=== PATIENT | male | born 1970 | race Caucasian/White ===

== ENCOUNTER → 2016-10-08 | Outpatient (CLI) | payer BC ==
--- NOTE | 2016-10-08 11:32 | US ---
EXAMINATION TYPE: US abdomen complete DATE OF EXAM: 10/08/2016 COMPARISON: NONE CLINICAL HISTORY: K82.9 DISEASE OF GALLBLADDER. mid abd and back pain, burning sensation after eating , rt shoulder pain EXAM MEASUREMENTS: Liver Length: 14.5 cm Gallbladder Wall: 0.2 cm CBD: 0.3 cm Spleen: 10.8 cm Right Kidney: 9.4 x 4.8 x 4.4 cm Left Kidney: 9.6 x 3.9 x 5.2 cm Bowel gas limits exam Pancreas: limited to no views due to bowel gas Liver: wnl Gallbladder: fundal fold seen, wnl Evidence for sonographic Bill's sign: no CBD: wnl Spleen: wnl Right Kidney: wnl Left Kidney: wnl Upper IVC: wnl Abd Aorta: unable to visualize due to extensive bowel gas The liver is homogenous. The intrahepatic portion of the IVC and proximal abdominal aorta are within normal limits. There is no evidence of cholelithiasis. Common bile duct is unremarkable. The visu alized portions of the pancreas are homogenous. The spleen is unremarkable. Kidneys are symmetric a nd free of hydronephrosis. No renal lesions are seen. IMPRESSION: 1. No sonographic evidence of acute cholecystitis. If there is clinical concern for biliary dyskinesi a or chronic cholecystitis HIDA scan with CCK could be performed. 2. Poor visualization of the abdominal aorta and pancreas due to overlying bowel gas.
== END ==
LOC: RADUSWWP 10:47
PROVIDERS: ATTEND Family Medicine
DX: K82.9 Disease of gallbladder, unspecified (principal)
CPT/HCPCS: 76700

== ENCOUNTER → 2016-10-21 | Outpatient (CLI) | payer BC ==
--- NOTE | 2016-10-21 15:15 | NM ---
EXAMINATION TYPE: NM hepatobiliary w EF DATE OF EXAM: 10/21/2016 COMPARISON: NONE HISTORY: Right upper quadrant pain. TECHNIQUE: After the intravenous administration of 5.38 mCi Tc 99m Mebrofenin hepatobiliary scintigra phy is performed. Immediate images post injection. FINDINGS: There is satisfactory initial accumulation of tracer by the liver. The gallbladder is visualized wit hin 10 minutes. The small bowel activity is noted within 42 minutes. At one hour 8 ounces of oral e nsure plus is given to mimic CCK and gallbladder ejection fraction is calculated at 48 %, below kiersten l. Therefore there is no scintigraphic evidence of cystic or common bile duct obstruction to suggest acute cholecystitis or gallbladder dyskinesia. IMPRESSION: BILIARY DYSKINESIA.
== END ==
LOC: RADNMMAIN 12:51
PROVIDERS: ATTEND Family Medicine
DX: K82.8 Other specified diseases of gallbladder (principal)
CPT/HCPCS: 78226; A9537

== ENCOUNTER 2018-05-07 16:25 | Emergency (ER) | payer BC ==
[2018-05-07] MEDS ORDERED: SODIUM CHLORIDE 0.9% 500 ML 500 ML IV STA (16:41)
[2018-05-07] MEDS ORDERED: SODIUM CHLORIDE 0.9% 1,000 ML IV STA (16:41)
[2018-05-07 16:49] VITALS: TEMP 97.7
--- NOTE | 2018-05-07 16:50 | ED ---
Syncope HPI - General Chief Complaint: Syncope Stated Complaint: Unresponsive Time Seen by Provider: 05/07/18 16:30 Source: patient, EMS, RN notes reviewed, old records reviewed Mode of arrival: EMS Limitations: no limitations - History of Present Illness Initial Comments: This is a 47-year-old male the ER for evaluation. Patient resents with a near syncopal like syncope-like reaction. With unresponsiveness. Patient has no significant medical history. He has had prior cardiac evaluation including stress test. Patient is had some right-sided chest pain on and off for quite some time when he woke from a nap with this pain earlier today. Patient also some slurred speech and weakness in his arms. Denies drug or alcohol abuse. Denies taking any medications. No prior history of such a significant event MD Complaint: felt faint, almost passed out -: minutes(s) Prodromal Symptoms: lightheaded, chest pain, palpitations, heart racing, diaphoresis -: minutes(s) Witnessed: yes - by bystander (Patient is was on the phone when he has slurred speech) Injuries Sustained Associated with Event: None Current Symptoms: back to baseline (Improving) History: previous syncopal episode Context: getting out of bed Treatments Prior to Arrival: none - Related Data Home Medications Medication Instructions Recorded Confirmed L.acidoph,Paracasei, B.lactis 1 cap PO DAILY 05/07/18 05/07/18 [Probiotic] Allergies Allergy/AdvReac Type Severity Reaction Status Date / Time No Known Allergies Allergy Verified 05/07/18 17:23 Review of Systems ROS Statement: Those systems with pertinent positive or pertinent negative responses have been documented in the HPI. ROS Other: All systems not noted in ROS Statement are negative. Past Medical History Past Medical History: No Reported History History of Any Multi-Drug Resistant Organisms: None Reported Additional Past Surgical History / Comment(s): urinary restriction repair Past Anesthesia/Blood Transfusion Reactions: No Reported Reaction Past Psychological History: No Psychological Hx Reported Smoking Status: Never smoker Past Alcohol Use History: Occasional Past Drug Use History: None Reported - Past Family History Father Family Medical History: No Reported History Mother Family Medical History: No Reported History General Exam - General Exam Comments Initial Comments: NIH is 0, no focal neurological deficit Limitations: no limitations General appearance: alert, in no apparent distress Head exam: Present: atraumatic, normocephalic, normal inspection Eye exam: Present: normal appearance, PERRL, EOMI. Absent: scleral icterus, conjunctival injection, periorbital swelling ENT exam: Present: normal exam, mucous membranes moist Neck exam: Present: normal inspection. Absent: tenderness, meningismus, lymphadenopathy Respiratory exam: Present: normal lung sounds bilaterally. Absent: respiratory distress, wheezes, rales, rhonchi, stridor Cardiovascular Exam: Present: regular rate, normal rhythm, normal heart sounds. Absent: systolic murmur, diastolic murmur, rubs, gallop, clicks GI/Abdominal exam: Present: soft, normal bowel sounds. Absent: distended, tenderness, guarding, rebound, rigid Extremities exam: Present: normal inspection, full ROM, normal capillary refill. Absent: tenderness, pedal edema, joint swelling, calf tenderness Back exam: Present: normal inspection Neurological exam: Present: alert, oriented X3, CN II-XII intact Psychiatric exam: Present: normal affect, normal mood Skin exam: Present: warm, dry, intact, normal color. Absent: rash Course Vital Signs 05/07/18 05/07/18 05/07/18 16:35 17:00 17:30 Temperature 97.7 F Pulse Rate 84 78 75 Respiratory 26 H 16 18 Rate Blood Pressure 146/90 146/90 119/81 O2 Sat by Pulse 100 88 L 91 L Oximetry 05/07/18 05/07/18 18:00 19:25 Temperature Pulse Rate 76 77 Respiratory 18 18 Rate Blood Pressure 132/89 123/84 O2 Sat by Pulse 100 98 Oximetry - Reevaluation(s) Reevaluation #1: 05/07/18 18:03 Medical record is reviewed Patient at length regarding findings, he does feel comfortable by findings. Patient would not stay in the hospital for further evaluation at this time. Questions answered EKG Findings - EKG Comments: EKG Findings:: EKG shows sinus rhythm rate of 70, [place] 140, QRS 90, QTc 424 Medical Decision Making - Medical Decision Making 47 male the ER for evaluation. Patient resents today for evaluation regards to near syncopal event after having some chest pain. Patient hasn't CT of the chest is negative for acute disease a CT of his brain which is normal and normal electrolytes and lab values. Patient himself is back to baseline with normal vital signs. Pulse of and stable throughout ER stay. Patient can be discharged home - Lab Data Result diagrams: 05/07/18 17:00 05/07/18 17:00 Lab Results 05/07/18 05/07/18 05/07/18 Range/Units 17:00 17:00 17:00 WBC (3.8-10.6) k/uL RBC (4.30-5.90) m/uL Hgb (13.0-17.5) gm/dL Hct (39.0-53.0) % MCV (80.0-100.0) fL MCH (25.0-35.0) pg MCHC (31.0-37.0) g/dL RDW (11.5-15.5) % Plt Count (150-450) k/uL Neutrophils % % Lymphocytes % % Monocytes % % Eosinophils % % Basophils % % Neutrophils # (1.3-7.7) k/uL Lymphocytes # (1.0-4.8) k/uL Monocytes # (0-1.0) k/uL Eosinophils # (0-0.7) k/uL Basophils # (0-0.2) k/uL PT (9.0-12.0) sec INR (<1.2) D-Dimer (<0.60) mg/L FEU VBG pH 7.54 H (7.31-7.41) VBG pCO2 27 L (37-51) mmHg VBG HCO3 23 L (24-28) mmol/L Sodium 139 (137-145) mmol/L Potassium 3.8 (3.5-5.1) mmol/L Chloride 105 (98-107) mmol/L Carbon Dioxide 22 (22-30) mmol/L Anion Gap 12 mmol/L BUN 18 (9-20) mg/dL Creatinine 1.00 (0.66-1.25) mg/dL Est GFR (CKD-EPI)AfAm >90 (>60 ml/min/1.73 sqM) Est GFR (CKD-EPI)NonAf 90 (>60 ml/min/1.73 sqM) Glucose 129 H (74-99) mg/dL POC Glucose (mg/dL) (75-99) mg/dL POC Glu Machine Filler Shredder ID Plasma Lactic Acid Jaime 3.2 H* (0.7-2.0) mmol/L Calcium 9.9 (8.4-10.2) mg/dL Total Bilirubin 0.7 (0.2-1.3) mg/dL AST 22 (17-59) U/L ALT 30 (21-72) U/L Alkaline Phosphatase 69 (38-126) U/L Ammonia <9 (<30) umol/L Troponin I (0.000-0.034) ng/mL Total Protein 7.2 (6.3-8.2) g/dL Albumin 4.4 (3.5-5.0) g/dL Lipase 95 (23-300) U/L Urine Color Urine Appearance (Clear) Urine pH (5.0-8.0) Ur Specific [place] (1.001-1.035) Urine Protein (Negative) Urine Glucose (UA) (Negative) Urine Ketones (Negative) Urine Blood (Negative) Urine Nitrite (Negative) Urine Bilirubin (Negative) Urine Urobilinogen (<2.0) mg/dL Ur Leukocyte Esterase (Negative) Salicylates <1.0 mg/dL Urine Opiates Screen (NotDetected) Ur Oxycodone Screen (NotDetected) Urine Methadone Screen (NotDetected) Ur Propoxyphene Screen (NotDetected) Acetaminophen <10.0 ug/mL Ur Barbiturates Screen (NotDetected) U Tricyclic Antidepress (NotDetected) Ur Phencyclidine Scrn (NotDetected) Ur Amphetamines Screen (NotDetected) U Methamphetamines Scrn (NotDetected) U Benzodiazepines Scrn (NotDetected) Urine Cocaine Screen (NotDetected) U Marijuana (THC) Screen (NotDetected) Serum Alcohol <10 mg/dL 05/07/18 05/07/18 05/07/18 Range/Units 17:00 17:00 17:00 WBC 4.3 (3.8-10.6) k/uL RBC 4.84 (4.30-5.90) m/uL Hgb 14.3 (13.0-17.5) gm/dL Hct 41.8 (39.0-53.0) % MCV 86.3 (80.0-100.0) fL MCH 29.5 (25.0-35.0) pg MCHC 34.2 (31.0-37.0) g/dL RDW 12.9 (11.5-15.5) % Plt Count 196 (150-450) k/uL Neutrophils % 53 % Lymphocytes % 27 % Monocytes % 11 % Eosinophils % 5 % Basophils % 1 % Neutrophils # 2.3 (1.3-7.7) k/uL Lymphocytes # 1.2 (1.0-4.8) k/uL Monocytes # 0.5 (0-1.0) k/uL Eosinophils # 0.2 (0-0.7) k/uL Basophils # 0.0 (0-0.2) k/uL PT 10.2 (9.0-12.0) sec INR 0.9 (<1.2) D-Dimer (<0.60) mg/L FEU VBG pH (7.31-7.41) VBG pCO2 (37-51) mmHg VBG HCO3 (24-28) mmol/L Sodium (137-145) mmol/L Potassium (3.5-5.1) mmol/L Chloride (98-107) mmol/L Carbon Dioxide (22-30) mmol/L Anion Gap mmol/L BUN (9-20) mg/dL Creatinine (0.66-1.25) mg/dL Est GFR (CKD-EPI)AfAm (>60 ml/min/1.73 sqM) Est GFR (CKD-EPI)NonAf (>60 ml/min/1.73 sqM) Glucose (74-99) mg/dL POC Glucose (mg/dL) (75-99) mg/dL POC Glu Machine Filler Shredder ID Plasma Lactic Acid Jaime (0.7-2.0) mmol/L Calcium (8.4-10.2) mg/dL Total Bilirubin (0.2-1.3) mg/dL AST (17-59) U/L ALT (21-72) U/L Alkaline Phosphatase (38-126) U/L Ammonia (<30) umol/L Troponin I <0.012 (0.000-0.034) ng/mL Total Protein (6.3-8.2) g/dL Albumin (3.5-5.0) g/dL Lipase (23-300) U/L Urine Color Urine Appearance (Clear) Urine pH (5.0-8.0) Ur Specific [place] (1.001-1.035) Urine Protein (Negative) Urine Glucose (UA) (Negative) Urine Ketones (Negative) Urine Blood (Negative) Urine Nitrite (Negative) Urine Bilirubin (Negative) Urine Urobilinogen (<2.0) mg/dL Ur Leukocyte Esterase (Negative) Salicylates mg/dL Urine Opiates Screen (NotDetected) Ur Oxycodone Screen (NotDetected) Urine Methadone Screen (NotDetected) Ur Propoxyphene Screen (NotDetected) Acetaminophen ug/mL Ur Barbiturates Screen (NotDetected) U Tricyclic Antidepress (NotDetected) Ur Phencyclidine Scrn (NotDetected) Ur Amphetamines Screen (NotDetected) U Methamphetamines Scrn (NotDetected) U Benzodiazepines Scrn (NotDetected) Urine Cocaine Screen (NotDetected) U Marijuana (THC) Screen (NotDetected) Serum Alcohol mg/dL 05/07/18 05/07/18 05/07/18 Range/Units 17:00 17:00 17:06 WBC (3.8-10.6) k/uL RBC (4.30-5.90) m/uL Hgb (13.0-17.5) gm/dL Hct (39.0-53.0) % MCV (80.0-100.0) fL MCH (25.0-35.0) pg MCHC (31.0-37.0) g/dL RDW (11.5-15.5) % Plt Count (150-450) k/uL Neutrophils % % Lymphocytes % % Monocytes % % Eosinophils % % Basophils % % Neutrophils # (1.3-7.7) k/uL Lymphocytes # (1.0-4.8) k/uL Monocytes # (0-1.0) k/uL Eosinophils # (0-0.7) k/uL Basophils # (0-0.2) k/uL PT (9.0-12.0) sec INR (<1.2) D-Dimer 0.22 (<0.60) mg/L FEU VBG pH (7.31-7.41) VBG pCO2 (37-51) mmHg VBG HCO3 (24-28) mmol/L Sodium (137-145) mmol/L Potassium (3.5-5.1) mmol/L Chloride (98-107) mmol/L Carbon Dioxide (22-30) mmol/L Anion Gap mmol/L BUN (9-20) mg/dL Creatinine (0.66-1.25) mg/dL Est GFR (CKD-EPI)AfAm (>60 ml/min/1.73 sqM) Est GFR (CKD-EPI)NonAf (>60 ml/min/1.73 sqM) Glucose (74-99) mg/dL POC Glucose (mg/dL) 95 (75-99) mg/dL POC Glu Machine Filler Shredder ID May Plasma Lactic Acid Jaime (0.7-2.0) mmol/L Calcium (8.4-10.2) mg/dL Total Bilirubin (0.2-1.3) mg/dL AST (17-59) U/L ALT (21-72) U/L Alkaline Phosphatase (38-126) U/L Ammonia (<30) umol/L Troponin I (0.000-0.034) ng/mL Total Protein (6.3-8.2) g/dL Albumin (3.5-5.0) g/dL Lipase (23-300) U/L Urine Color Light Yellow Urine Appearance Clear (Clear) Urine pH 8.5 H (5.0-8.0) Ur Specific [place] 1.006 (1.001-1.035) Urine Protein Negative (Negative) Urine Glucose (UA) Negative (Negative) Urine Ketones Negative (Negative) Urine Blood Negative (Negative) Urine Nitrite Negative (Negative) Urine Bilirubin Negative (Negative) Urine Urobilinogen <2.0 (<2.0) mg/dL Ur Leukocyte Esterase Negative (Negative) Salicylates mg/dL Urine Opiates Screen Not Detected (NotDetected) Ur Oxycodone Screen Not Detected (NotDetected) Urine Methadone Screen Not Detected (NotDetected) Ur Propoxyphene Screen Not Detected (NotDetected) Acetaminophen ug/mL Ur Barbiturates Screen Not Detected (NotDetected) U Tricyclic Antidepress Not Detected (NotDetected) Ur Phencyclidine Scrn Not Detected (NotDetected) Ur Amphetamines Screen Not Detected (NotDetected) U Methamphetamines Scrn Not Detected (NotDetected) U Benzodiazepines Scrn Not Detected (NotDetected) Urine Cocaine Screen Not Detected (NotDetected) U Marijuana (THC) Screen Not Detected (NotDetected) Serum Alcohol mg/dL - Radiology Data Radiology results: report reviewed (CT brain CTA chest negative for acute disease), image reviewed Disposition Clinical Impression: Near syncope, Chest pain Disposition: HOME SELF-CARE Condition: Good Instructions (If sedation given, give patient instructions): Chest Pain (ED), Near Syncope (ED) Is patient prescribed a controlled substance at d/c from ED?: No Referrals: Rupinder Valverde III, MD [Primary Care Provider] - 1-2 days
[2018-05-07 17:09] LABS: Glucose,Whole Blood 95 mg/dL (75-99)
[2018-05-07 17:37] LABS: Basophils % (A) 1 %; Eosinophils # (A) 0.2 k/uL (0-0.7); Eosinophils % (A) 5 %; HCT 41.8 % (39.0-53.0); HGB 14.3 gm/dL (13.0-17.5); Lymphocytes # (A) 1.2 k/uL (1.0-4.8); Lymphocytes % (A) 27 %; MCH 29.5 pg (25.0-35.0); MCHC 34.2 g/dL (31.0-37.0); MCV 86.3 fL (80.0-100.0); Mean Platelet Volume 7.6; Monocytes # (A) 0.5 k/uL (0-1.0); Monocytes % (A) 11 %; Neutrophils # (A) 2.3 k/uL (1.3-7.7); Neutrophils % (A) 53 %; Platelet Count 196 k/uL (150-450); RBC 4.84 m/uL (4.30-5.90); RDW 12.9 % (11.5-15.5); WBC 4.3 k/uL (3.8-10.6)
[2018-05-07 17:38] LABS: VBG PH 7.54 (7.31-7.41)
--- NOTE | 2018-05-07 17:39 | CT ---
EXAMINATION TYPE: CT brain wo con DATE OF EXAM: 05/07/2018 COMPARISON: None HISTORY: dizziness, syncopal episode CT DLP: 1188.4 mGycm. Automated Exposure Control for Dose Reduction was Utilized. TECHNIQUE: CT scan of the head is performed without contrast. FINDINGS: Ventricles of normal size. There is no mass effect nor midline shift. There is no sign of i ntracranial hemorrhage. The calvarium is intact. IMPRESSION: Negative CT scan of the brain.
[2018-05-07 17:41] LABS: Appearance,Urine Clear (Clear); Bilirubin,Urine Negative (Negative); Blood,Urine Negative (Negative); Color,Urine Light Yellow; Glucose,Urine (UA) Negative (Negative); Ketones,Urine Negative (Negative); Leukocyte Esterase,Urine Negative (Negative); Nitrite,Urine Negative (Negative); PH, Urine 8.5 (5.0-8.0); Protein,Urine Negative (Negative); Specific Gravity,Urine 1.006 (1.001-1.035); Urobilinogen,Urine <2.0 mg/dL (<2.0)
[2018-05-07 17:46] LABS: INR 0.9 (<1.2); Prothrombin Time 10.2 sec (9.0-12.0)
[2018-05-07 17:51] LABS: ALT 30 U/L (21-72); AST 22 U/L (17-59); Acetaminophen <10.0 ug/mL; Albumin 4.4 g/dL (3.5-5.0); Alcohol <10 mg/dL; Alkaline Phosphatase 69 U/L (38-126); Anion Gap 12 mmol/L; Blood Urea Nitrogen 18 mg/dL (9-20); Calcium 9.9 mg/dL (8.4-10.2); Carbon Dioxide 22 mmol/L (22-30); Chloride 105 mmol/L (98-107); Glucose 129 mg/dL (74-99); Lipase 95 U/L (23-300); Potassium 3.8 mmol/L (3.5-5.1); Salicylate <1.0 mg/dL; Sodium 139 mmol/L (137-145); Total Bilirubin 0.7 mg/dL (0.2-1.3); Total Protein 7.2 g/dL (6.3-8.2)
[2018-05-07 17:55] LABS: Ammonia <9 umol/L (<30)
[2018-05-07 17:57] LABS: Lactic Acid, Venous 3.2 mmol/L (0.7-2.0)
[2018-05-07 18:07] LABS: Amphetamine Screen,Urine Not Detected (NotDetected); Barbiturate Screen,Urine Not Detected (NotDetected); Benzodiazepines Screen,Urine Not Detected (NotDetected); Cocaine Screen,Urine Not Detected (NotDetected); Methadone Screen, Urine Not Detected (NotDetected); Opiate Screen,Urine Not Detected (NotDetected); Oxycodone Screen, Urine Not Detected (NotDetected); Phencyclidine Screen,Urine Not Detected (NotDetected); Tricyclic Antidepressant,Urine Not Detected (NotDetected); Urn Cannabinoid Scrn Not Detected (NotDetected)
[2018-05-07 18:24] VITALS: RESP 18
--- NOTE | 2018-05-07 18:31 | CT ---
EXAMINATION TYPE: CT angio chest DATE OF EXAM: 05/07/2018 6:09 PM COMPARISON: None HISTORY: chest pain CT DLP: 347.1 mGycm Automated exposure control for dose reduction was used. CONTRAST: CTA scan of the thorax is performed with IV Contrast, patient injected with 94cc mL of Isovue 370, pu lmonary embolism protocol. . FINDINGS: There are 3-D post processed images. The lungs are clear of consolidation. There is no evidence of a pulmonary mass. There is no pleural e ffusion. There is 5 mm area of minimal pleural thickening at the medial right lung apex. There is no mediastinal adenopathy. Thoracic aorta is intact without evidence of aneurysm or dissecti on. There are no hilar masses. Heart size is normal. There is no pericardial effusion. There is normal contrast opacification of the pulmonary arteries. The bony thorax appears intact. There is some spurring in the thoracic spine. IMPRESSION: NO EVIDENCE OF PULMONARY EMBOLISM. NEGATIVE EXAM.
[2018-05-07 19:26] VITALS: BP 123/84; PULSE 77
== END 2018-05-07 19:34 | disposition home or self-care (01) ==
LOC: EC 16:25
DX: R55 Syncope and collapse (principal); R07.9 Chest pain, unspecified; R47.81 Slurred speech; R53.1 Weakness
CPT/HCPCS: 36415; 93005; 85379; 80053; 82140; 82803; 83605; 83690; 84484; 85025; 85610; 81003; 80306; 83520 ×2; 80320; 70450; 71275; 99285; 96360; Q9967

== ENCOUNTER 2018-06-12 09:51 | Day surgery (SDC) | payer BC ==
[2018-06-08 09:34] VITALS: BMI 24.3
[~2018-06-12 09:51] MED LIST: LACTATED RINGERS 1,000 ML IV SCH; LIDOCAINE 1% 20 ML VIAL (10MG/ML) FOR IV START INTRADERMA PRN
[2018-06-12 10:17] VITALS: RESP 16; TEMP 97.9
[2018-06-12] MEDS ORDERED: PROPOFOL 10 MG/ML 20 ML VIAL IV ONE (11:46)
[2018-06-12] MEDS ORDERED: LIDOCAINE 1% INJ 10MG/ML (20 ML MDV) ONE (11:46)
--- NOTE | 2018-06-12 12:13 | P.PCN ---
Date of Procedure: 06/12/18 Procedure(s) Performed: Procedure: Esophagogastroduodenoscopy and biopsy. Preoperative diagnosis: Epigastric pain of around 8 weeks duration. Postoperative diagnosis: 1. Small sliding hiatal hernia with no definite esophagitis or complicated reflux disease. 2. Mild antral gastritis and minimal duodenitis. 3. Multiple biopsies obtained from the duodenum, antrum and esophagus. Preparation and sedation: Was provided by anesthesia. Brief clinical history: The patient is a 47-year-old male who is scheduled for this evolution because of epigastric and hypogastric pains with radiation to the back of around 8-week duration. He is not having any reflux symptoms as such. Initially, at the beginning of this illness, he was having some nocturnal regurgitation and this as promptly improved once he was his diet and stopped eating for 2-3 hours before bedtime. No alarm symptoms. This evaluation is requested to assess for esophagitis, rule out complicated reflux disease or other pathology. Procedure: With the patient on his left lateral decubitus position and after informed consent and adequate sedation, I passed the Olympus-GIF H 190 video upper endoscope through the cricopharyngeus down the esophagus. GE junction was around 38 cm from the incisors and there was a small sliding hiatal hernia but no obvious esophagitis or complicated reflux disease. The endoscope was then passed into the stomach which was insufflated with air and inspected in detail including the retroflex view in the cardia. There was some mottling and erythema in the antrum but no ulcers or erosions. Pyloric channel did not show any ulcers. Duodenal bulb showed minimal erythema with no ulcers or erosions. Post bulbar area and descending duodenum appeared essentially within normal limits. I obtained biopsies from the duodenum, antrum and esophagus then the endoscope was withdrawn. The patient tolerated the procedure well. Plan: The patient was reassured. Will await biopsy results. He will follow up with you as planned and I will be happy to see in the office if his symptoms persist.
[2018-06-12 12:36] VITALS: BP 135/76; PULSE 66
== END 2018-06-12 13:02 | disposition home or self-care (01) ==
LOC: ORWHC2ENDO 09:51
DX: K29.50 Unspecified chronic gastritis without bleeding (principal); K29.80 Duodenitis without bleeding; K20.9 Esophagitis, unspecified; K44.9 Diaphragmatic hernia without obstruction or gangrene; Z88.5 Allergy status to narcotic agent
CPT/HCPCS: 88305; 43239; J2001; J2704

== ENCOUNTER 2020-06-23 19:39 | Emergency (ER) | payer BC ==
[2020-06-23 19:49] VITALS: RESP 18
--- NOTE | 2020-06-23 20:08 | ED ---
Dizziness HPI - General Chief Complaint: Syncope Stated Complaint: Syncope,Covid+ Time Seen by Provider: 06/23/20 19:45 Source: patient, EMS Mode of arrival: EMS Limitations: no limitations - History of Present Illness Initial Comments: Patient is a 49-year-old male who presents emergency department after he had a syncopal episode. It is reported by EMS that the patient was at home with his when he passed out. Patient was sitting down watching TV when his eyes rolled back in his head. states that he was unresponsive for approximate 5 minutes. There is no seizure-like activity. No bowel or bladder incontinence. Patient did not bite his tongue. EMS was called to the house where the patient was found to be pale and diaphoretic. Patient was found to be Covid-positive on the . He did get diagnosed at [facility]. Patient has not been taking any new medications for the covid diagnosis. He admits to nausea with decreased ora l intake. No vomiting. Denies any chest pain or shortness of breath. No abdominal pain. Does admit to diarrhea. Does admit to dark stools. No other alleviating, precipitating or modifying factors - Related Data Home Medications Medication Instructions Recorded Confirmed Cholecalciferol [Vitamin D3 (25 50 mcg PO DAILY 06/23/20 06/23/20 Mcg = 1000 Iu)] Famotidine [Pepcid AC] 20 mg PO DAILY PRN 06/23/20 06/23/20 Previous Rx's Medication Instructions Recorded Ondansetron Odt [Zofran Odt] 4 mg PO Q8HR PRN #15 tab 06/23/20 Allergies Allergy/AdvReac Type Severity Reaction Status Date / Time meperidine [From Demerol] Allergy Nausea Verified 06/23/20 20:59 mold,cat dander Allergy Unknown Uncoded 06/12/18 10:11 Review of Systems ROS Statement: Those systems with pertinent positive or pertinent negative responses have been documented in the HPI. ROS Other: All systems not noted in ROS Statement are negative. Past Medical History Past Medical History: Skin Disorder Additional Past Medical History / Comment(s): stomach burning feeling and d iscomfort, hx eczema, History of Any Multi-Drug Resistant Organisms: None Reported Additional Past Surgical History / Comment(s): urinary restriction repair/removal of scar tissue Past Anesthesia/Blood Transfusion Reactions: Motion Sickness, Postoperative Nausea & Vomiting (PONV) Past Psychological History: No Psychological Hx Reported Smoking Status: Never smoker Past Alcohol Use History: Occasional Past Drug Use History: None Reported - Past Family History Father Family Medical History: No Reported History Mother Family Medical History: No Reported History General Exam Limitations: no limitations General appearance: alert, in no apparent distress Head exam: Present: atraumatic, normocephalic, normal inspection Eye exam: Present: normal appearance, PERRL, EOMI. Absent: scleral icterus, conjunctival injection, periorbital swelling ENT exam: Present: normal exam, mucous membranes moist Neck exam: Present: normal inspection. Absent: tenderness, meningismus, l ymphadenopathy Respiratory exam: Present: normal lung sounds bilaterally. Absent: respiratory distress, wheezes, rales, rhonchi, stridor Cardiovascular Exam: Present: regular rate, normal rhythm, normal heart sounds. Absent: systolic murmur, diastolic murmur, rubs, gallop, clicks GI/Abdominal exam: Present: soft, normal bowel sounds. Absent: distended, tenderness, guarding, rebound, rigid Extremities exam: Present: normal inspection, full ROM, normal capillary refill. Absent: tenderness, pedal edema, joint swelling, calf tenderness Back exam: Present: normal inspection Neurological exam: Present: alert, oriented X3, CN II-XII intact Psychiatric exam: Present: normal affect, normal mood Skin exam: Present: warm, intact, normal color, diaphoretic. Absent: rash Course Vital Signs 06/23/20 06/23/20 19:42 22:32 Temperature 98.0 F 98.7 F Pulse Rate 64 82 Respiratory 18 18 Rate Blood Pressure 131/82 127/78 O2 Sat by Pulse 96 98 Oximetry EKG Findings - EKG Comments: EKG Findings:: EKG demonstrates normal sinus rhythm with a ventricular rate of 81. DE interval 142. QRS 76. QTC 457. No acute ST segment elevations or depressions Medical Decision Making - Medical Decision Making Upon arrival patient is placed in room 11. Thorough history and physical exam is performed. IV is established. Patient was given a liter bolus of normal saline informal grams of Zofran. Laboratory studies are conducted and reviewed. Slight elevation the patient's AST and ALT. He does provide a stool sample which is negative for blood. Chest x-ray is performed which demonstrates no acute process. Results are discussed with the patient. Did offer hospital admission however the issue reports that he wants to go home at this time. Patient does have improved coloration to his skin. Patient is given strict return parameters. Instructed to increase hydration. He will be given a Zofran starter pack and additional prescription called in to pharmacy. If the patient has any new or worsening symptoms he should return to the emergency department. Patient agreed to this and the patient was discharged home in stable condition - Lab Data Result diagrams: 06/23/20 20:27 06/23/20 20:27 Lab Results 06/23/20 06/23/20 06/23/20 Range/Units 20:27 20:27 20:27 WBC 3.7 L (3.8-10.6) k/uL RBC 4.54 (4.30-5.90) m/uL Hgb 13.9 (13.0-17.5) gm/dL Hct 38.7 L (39.0-53.0) % MCV 85.1 (80.0-100.0) fL MCH 30.6 (25.0-35.0) pg MCHC 35.9 (31.0-37.0) g/dL RDW 12.6 (11.5-15.5) % Plt Count 141 L (150-450) k/uL MPV 7.7 Neutrophils % 36 % Lymphocytes % 51 % Monocytes % 7 % Eosinophils % 3 % Basophils % 1 % Neutrophils # 1.4 (1.3-7.7) k/uL Lymphocytes # 1.9 (1.0-4.8) k/uL Monocytes # 0.3 (0-1.0) k/uL Eosinophils # 0.1 (0-0.7) k/uL Basophils # 0.0 (0-0.2) k/uL PT 9.8 (9.0-12.0) sec INR 0.9 (<1.2) APTT 21.4 L (22.0-30.0) sec D-Dimer 0.32 (<0.60) mg/L FEU Sodium 139 (137-145) mmol/L Potassium 3.7 (3.5-5.1) mmol/L Chloride 103 (98-107) mmol/L Carbon Dioxide 24 (22-30) mmol/L Anion Gap 12 mmol/L BUN 22 H (9-20) mg/dL Creatinine 1.06 (0.66-1.25) mg/dL Est GFR (CKD-EPI)AfAm >90 (>60 ml/min/1.73 sqM) Est GFR (CKD-EPI)NonAf 83 (>60 ml/min/1.73 sqM) Glucose 112 H (74-99) mg/dL Plasma Lactic Acid Jaime (0.7-2.0) mmol/L Calcium 9.1 (8.4-10.2) mg/dL Magnesium 2.2 (1.6-2.3) mg/dL Total Bilirubin 0.6 (0.2-1.3) mg/dL AST 62 H (17-59) U/L ALT 63 H (4-49) U/L Alkaline Phosphatase 57 (38-126) U/L Lactate Dehydrogenase 557 (313-618) U/L Troponin I (0.000-0.034) ng/mL C-Reactive Protein 0.9 (<1.0) mg/dL Total Protein 6.9 (6.3-8.2) g/dL Albumin 4.4 (3.5-5.0) g/dL Stool Occult Blood (Negative) 06/23/20 06/23/20 06/23/20 Range/Units 20:27 20:27 22:06 WBC (3.8-10.6) k/uL RBC (4.30-5.90) m/uL Hgb (13.0-17.5) gm/dL Hct (39.0-53.0) % MCV (80.0-100.0) fL MCH (25.0-35.0) pg MCHC (31.0-37.0) g/dL RDW (11.5-15.5) % Plt Count (150-450) k/uL MPV Neutrophils % % Lymphocytes % % Monocytes % % Eosinophils % % Basophils % % Neutrophils # (1.3-7.7) k/uL Lymphocytes # (1.0-4.8) k/uL Monocytes # (0-1.0) k/uL Eosinophils # (0-0.7) k/uL Basophils # (0-0.2) k/uL PT (9.0-12.0) sec INR (<1.2) APTT (22.0-30.0) sec D-Dimer (<0.60) mg/L FEU Sodium (137-145) mmol/L Potassium (3.5-5.1) mmol/L Chloride (98-107) mmol/L Carbon Dioxide (22-30) mmol/L Anion Gap mmol/L BUN (9-20) mg/dL Creatinine (0.66-1.25) mg/dL Est GFR (CKD-EPI)AfAm (>60 ml/min/1.73 sqM) Est GFR (CKD-EPI)NonAf (>60 ml/min/1.73 sqM) Glucose (74-99) mg/dL Plasma Lactic Acid Jaime 1.5 (0.7-2.0) mmol/L Calcium (8.4-10.2) mg/dL Magnesium (1.6-2.3) mg/dL Total Bilirubin (0.2-1.3) mg/dL AST (17-59) U/L ALT (4-49) U/L Alkaline Phosphatase (38-126) U/L Lactate Dehydrogenase (313-618) U/L Troponin I <0.012 (0.000-0.034) ng/mL C-Reactive Protein (<1.0) mg/dL Total Protein (6.3-8.2) g/dL Albumin (3.5-5.0) g/dL Stool Occult Blood Negative (Negative) Disposition Clinical Impression: COVID-19, Syncope Disposition: HOME SELF-CARE Condition: Stable Instructions (If sedation given, give patient instructions): Coronavirus Disea se 2019 (COVID-19), Syncope (ED) Additional Instructions: Please stay hydrated. Use the zofran as needed for nausea. Return to the ED for any new or worsening symptoms. Prescriptions: Ondansetron Odt [Zofran Odt] 4 mg PO Q8HR PRN #15 tab PRN Reason: Nausea Is patient prescribed a controlled substance at d/c from ED?: No Referrals: Rupinder Valverde III, MD [Primary Care Provider] - 1-2 days Time of Disposition: 22:27
[2020-06-23] MEDS ORDERED: SODIUM CHLORIDE 0.9% 1,000 ML IV ONE (20:12)
[2020-06-23] MEDS ORDERED: ONDANSETRON 4 MG/2 ML VIAL IVP STA (20:12)
[2020-06-23 20:37] LABS: Basophils % (A) 1 %; Eosinophils # (A) 0.1 k/uL (0-0.7); Eosinophils % (A) 3 %; HCT 38.7 % (39.0-53.0); HGB 13.9 gm/dL (13.0-17.5); Lymphocytes # (A) 1.9 k/uL (1.0-4.8); Lymphocytes % (A) 51 %; MCH 30.6 pg (25.0-35.0); MCHC 35.9 g/dL (31.0-37.0); MCV 85.1 fL (80.0-100.0); Mean Platelet Volume 7.7; Monocytes # (A) 0.3 k/uL (0-1.0); Monocytes % (A) 7 %; Neutrophils # (A) 1.4 k/uL (1.3-7.7); Neutrophils % (A) 36 %; Platelet Count 141 k/uL (150-450); RBC 4.54 m/uL (4.30-5.90); RDW 12.6 % (11.5-15.5); WBC 3.7 k/uL (3.8-10.6)
[2020-06-23 20:59] LABS: ALT 63 U/L (4-49); AST 62 U/L (17-59); African American GFR (CKD) >90 (>60 ml/min/1.73 sqM); Albumin 4.4 g/dL (3.5-5.0); Alkaline Phosphatase 57 U/L (38-126); Anion Gap 12 mmol/L; Blood Urea Nitrogen 22 mg/dL (9-20); C Reactive Protein 0.9 mg/dL (<1.0); Calcium 9.1 mg/dL (8.4-10.2); Carbon Dioxide 24 mmol/L (22-30); Chloride 103 mmol/L (98-107); Glucose 112 mg/dL (74-99); LDH 557 U/L (313-618); Magnesium 2.2 mg/dL (1.6-2.3); Non-African American GFR(CKD) 83 (>60 ml/min/1.73 sqM); Potassium 3.7 mmol/L (3.5-5.1); Sodium 139 mmol/L (137-145); Total Bilirubin 0.6 mg/dL (0.2-1.3); Total Protein 6.9 g/dL (6.3-8.2)
[2020-06-23 21:03] LABS: D-Dimer 0.32 mg/L FEU (<0.60); INR 0.9 (<1.2); Prothrombin Time 9.8 sec (9.0-12.0)
--- NOTE | 2020-06-23 21:11 | XR ---
EXAMINATION TYPE: XR chest 1V portable DATE OF EXAM: 06/23/2020 COMPARISON: 10/09/2015 HISTORY: Chest pain TECHNIQUE: Single frontal view of the chest is obtained. FINDINGS: There is no focal air space opacity, pleural effusion, or pneumothorax seen. The cardiac silhouette size is within normal limits. The osseous structures are intact. IMPRESSION: 1. No acute process.
[2020-06-23 21:34] LABS: Partial Thromboplastin Time 21.4 sec (22.0-30.0)
[2020-06-23] MEDS ORDERED: ONDANSETRON 4 MG ODT STARTER PACK 2 TAB BTL PO STA (22:25)
[2020-06-23 22:33] VITALS: BP 127/78; PULSE 82; TEMP 98.7
== END 2020-06-23 22:53 | disposition home or self-care (01) ==
LOC: EC 19:39
DX: R55 Syncope and collapse (principal); U07.1 COVID-19
CPT/HCPCS: 36415; 93005; 85379; 80053; 83605; 83615; 83735; 84484; 85025; 85610; 85730; 86140; 82272; 84145; 71045; 99284; 96374; 96361; J2405; S0119

== ENCOUNTER 2020-07-22 07:14 | Observation (INO) | payer BC ==
--- NOTE | 2020-07-22 07:46 | ED ---
Chest Pain HPI - General Chief Complaint: Chest Pain Stated Complaint: Racing heart, lightheadedness Time Seen by Provider: 07/22/20 07:16 Source: patient, family, RN/MD, RN notes reviewed Mode of arrival: wheelchair Limitations: no limitations - History of Present Illness Initial Comments: This is a 49-year-old male with a sensory benign history who had been diagnosed with COVID-19 on June 17 of this year who recently has had problems with waking up at night with palpitations and chest pain. He does have chronic cough and fatigue syndrome and shortness of breath since a [place] he's had 2 negative x- rays recently. He does state he's been having chills sweats but no fever he said pain and radiates down his right arm and his left arm and different times. He states it seems to get worse when he is supine and better when he sits up when these events occur. He was sent in by his doctor for evaluation. Currently he is pain-free he denies any calf pain he's a nonsmoker there is a family history of heart disease at an early age in the 40s of both grandparents he states they were both heavy smokers. His own father has no history at this time of cardiac events. No other complaints or modifying factors at this time MD Complaint: chest pain, other - Related Data Home Medications Medication Instructions Recorded Confirmed No Known Home Medications 07/22/20 07/22/20 Allergies Allergy/AdvReac Type Severity Reaction Status Date / Time meperidine [From Demerol] AdvReac Nausea Verified 07/22/20 08:25 mold,cat dander AdvReac Unknown Uncoded 07/22/20 08:25 Review of Systems ROS Statement: Those systems with pertinent positive or pertinent negative responses have been documented in the HPI. ROS Other: All systems not noted in ROS Statement are negative. EKG Findings - EKG Results: EKG: interpreted by [facility]LA[facility] [place], sinus rhythm, normal axis, normal QRS, normal ST/T, no acute changes (EKG shows normal sinus rhythm of 70. Interval 146 QRS 76 daily since QTC 374/[address]-T wave changes this is compared with an EKG dated 06/23/20 showing similar configuration.) Past Medical History Past Medical History: Skin Disorder Additional Past Medical History / Comment(s): stomach burning feeling and discomfort, hx eczema, History of Any Multi-Drug Resistant Organisms: None Reported Additional Past Surgical History / Comment(s): urinary restriction repair/removal of scar tissue Past Anesthesia/Blood Transfusion Reactions: Motion Sickness, Postoperative Nausea & Vomiting (PONV) Past Psychological History: No Psychological Hx Reported Smoking Status: Never smoker Past Alcohol Use History: Occasional Past Drug Use History: None Reported - Past Family History Father Family Medical History: No Reported History Mother Family Medical History: No Reported History General Exam - General Exam Comments Initial Comments: This a well-developed sec appearing male who is awake alert oriented 3 Limitations: no limitations General appearance: alert, anxious Head exam: Present: atraumatic, normocephalic, normal inspection Eye exam: Present: normal appearance, PERRL, EOMI. Absent: scleral icterus, conjunctival injection, periorbital swelling ENT exam: Present: normal exam, mucous membranes moist Neck exam: Present: normal inspection, full ROM, other (No stridor JVD or bruits). Absent: tenderness, meningismus, lymphadenopathy Respiratory exam: Present: normal lung sounds bilaterally. Absent: respiratory distress, wheezes, rales, rhonchi, stridor Cardiovascular Exam: Present: regular rate, normal rhythm, normal heart sounds. Absent: systolic murmur, diastolic murmur, rubs, gallop, clicks GI/Abdominal exam: Present: soft, normal bowel sounds. Absent: distended, tenderness, guarding, rebound, rigid Extremities exam: Present: normal inspection, full ROM, normal capillary refill. Absent: tenderness, pedal edema, joint swelling, calf tenderness Back exam: Present: normal inspection Neurological exam: Present: alert, oriented X3, CN II-XII intact Psychiatric exam: Present: normal affect, normal mood Skin exam: Present: warm, dry, intact, normal color. Absent: rash Course Vital Signs 07/22/20 07/22/20 07:15 08:38 Temperature 97.5 F L Pulse Rate 78 71 Respiratory 18 18 Rate Blood Pressure 130/90 106/76 O2 Sat by Pulse 100 98 Oximetry Chest Pain MDM - MDM Imaging reviewed no acute findings I did a long discussion with patient family as well as previous discussion with Dr. Valverde. Patient will be admitted for evaluation of chest pain echocardiogram cardiology consultation. Disposition Clinical Impression: Chest pain, History of COVID-19 Disposition: ADMITTED IP TO THIS HOSP Condition: Fair Referrals: Rupinder Valverde III, MD [Primary Care Provider] - 1-2 days
[2020-07-22 08:03] LABS: C Reactive Protein 0.5 mg/dL (<1.0); Magnesium 2.4 mg/dL (1.6-2.3); Potassium 4.4 mmol/L (3.5-5.1); Total Bilirubin 0.7 mg/dL (0.2-1.3); Total Protein 7.8 g/dL (6.3-8.2)
--- NOTE | 2020-07-22 08:03 | XR ---
EXAMINATION TYPE: XR chest 2V DATE OF EXAM: 07/22/2020 COMPARISON: 06/23/2020 TECHNIQUE: PA and lateral views submitted. HISTORY: Chest pain FINDINGS: The lungs are clear and there is no pneumothorax, pleural effusion, or focal pneumonia. Hypertrophi c and degenerative change of the spine. No overt failure. Heart size normal. IMPRESSION: 1. No acute process.
[2020-07-22 08:08] LABS: D-Dimer <0.17 mg/L FEU (<0.60); INR 0.9 (<1.2); Partial Thromboplastin Time 22.8 sec (22.0-30.0)
[2020-07-22 08:10] LABS: Basophils # (A) 0.1 k/uL (0-0.2); Basophils % (A) 1 %; Eosinophils # (A) 0.2 k/uL (0-0.7); Eosinophils % (A) 4 %; HCT 42.2 % (39.0-53.0); HGB 15.1 gm/dL (13.0-17.5); Lymphocytes # (A) 1.2 k/uL (1.0-4.8); Lymphocytes % (A) 26 %; MCH 31.3 pg (25.0-35.0); MCHC 35.8 g/dL (31.0-37.0); MCV 87.4 fL (80.0-100.0); Mean Platelet Volume 7.7; Monocytes # (A) 0.3 k/uL (0-1.0); Monocytes % (A) 7 %; Neutrophils # (A) 2.8 k/uL (1.3-7.7); Neutrophils % (A) 61 %; Platelet Count 178 k/uL (150-450); RBC 4.82 m/uL (4.30-5.90); RDW 12.9 % (11.5-15.5); WBC 4.6 k/uL (3.8-10.6)
[2020-07-22] MEDS ORDERED: NITROGLYCERIN SL TABS 0.4 MG TAB SUBLINGUAL PRN (09:22)
[2020-07-22] MEDS: SODIUM CHLORIDE 0.9% 1,000 ML IV SCH (09:52)
[2020-07-22] MEDS ORDERED: PANTOPRAZOLE 40 MG/10 ML VIAL IVP SCH (10:00)
--- NOTE | 2020-07-22 10:34 | P.HPIM ---
History of Present Illness This is a pleasant 49 race old male with no significant past medical history. Patient has been tested positive for cough but about 4 weeks ago. Patient states that he has been diagnosed with Coved on June 17 he had some fe zana fatigue and all his symptoms resolved except for chronic cough, his doctor prescribed him cough medicine about 2 weeks ago. His PCP is Dr. Valverde However over the last week and a half he's been waking up in the middle of night about 3-5 times at the time with palpitation, he feels that because of his heart very fast that last somewhere between 2-5 minutes, attachment to 9/week and tonight's this week, last night it wake up from sleep about 3-4 times. These episodes Associated with nausea, sweating, some lightheadedness and at times some pain in his jaw and neck. Sometimes also he feels some chest pressure Vitas looks stable, labs show an unremarkable CBC, INR, BMP and liver enzymes. ProBNP is thirsty. Troponin is negative less than 0.012. D-dimer is negative less than 0.17. EKG showing normal sinus rhythm at 70 bpm with no significant ST-T changes Review of Systems CONSTITUTIONAL: No fever, no malaise, no fatigue. HEENT: No recent visual problems or hearing problems. Denied any sore throat. CARDIOVASCULAR: No orthopnea, PND, no palpitations, no syncope. PULMONARY: No shortness of breath, no cough, no hemoptysis. GASTROINTESTINAL: No diarrhea, no nausea, no vomiting, no abdominal pain. Normoactive bowel sounds. NEUROLOGICAL: No headaches, no weakness, no numbness. HEMATOLOGICAL: Denies any bleeding or petechiae. GENITOURINARY: Denies any burning micturition, frequency, or urgency. MUSCULOSKELETAL/RHEUMATOLOGICAL: Denies any joint pain, swelling, or any muscle pain. ENDOCRINE: Denies any polyuria or polydipsia. Past Medical History Past Medical History: Skin Disorder Additional Past Medical History / Comment(s): stomach burning feeling and discomfort, hx eczema, History of Any Multi-Drug Resistant Organisms: None Reported Additional Past Surgical History / Comment(s): urinary restriction repair/removal of scar tissue Past Anesthesia/Blood Transfusion Reactions: Motion Sickness, Postoperative Nausea & Vomiting (PONV) Past Psychological History: No Psychological Hx Reported Smoking Status: Never smoker Past Alcohol Use History: Occasional Past Drug Use History: None Reported - Past Family History Father Family Medical History: No Reported History Mother Family Medical History: No Reported History Medications and Allergies Home Medications Medication Instructions Recorded Confirmed Type No Known Home Medications 07/22/20 07/22/20 History Allergies Allergy/AdvReac Type Severity Reaction Status Date / Time meperidine [From Demerol] AdvReac Nausea Verified 07/22/20 08:25 mold,cat dander AdvReac Unknown Uncoded 07/22/20 08:25 Physical Exam Vitals: Vital Signs Temp Pulse Resp BP Pulse Ox 07/22/20 08:38 71 18 106/76 98 07/22/20 07:15 97.5 F L 78 18 130/90 100 Intake and Output 07/21/20 07/22/20 07/22/20 22:59 06:59 14:59 Other: Weight 79.379 kg GENERAL: The patient is alert and oriented x3, not in any acute distress. Well developed, well nourished. HEENT: Pupils are round and equally reacting to light. EOMI. No scleral icterus. No conjunctival pallor. Normocephalic, atraumatic. No pharyngeal erythema. No thyromegaly. CARDIOVASCULAR: S1 and S2 present. No murmurs, rubs, or gallops. PULMONARY: Chest is clear to auscultation, no wheezing or crackles. ABDOMEN: Soft, nontender, nondistended, normoactive bowel sounds. No palpable organomegaly. MUSCULOSKELETAL: No joint swelling or deformity. EXTREMITIES: No cyanosis, clubbing, or pedal edema. NEUROLOGICAL: Gross neurological examination did not reveal any focal deficits. SKIN: No rashes. No petechiae Results CBC & Chem 7: 07/22/20 07:37 07/22/20 07:37 Labs: Abnormal Lab Results - Last 24 Hours (Table) 07/22/20 Range/Units 07:37 BUN 21 H (9-20) mg/dL Glucose 108 H (74-99) mg/dL Magnesium 2.4 H (1.6-2.3) mg/dL Assessment and Plan Assessment: Episodes of palpitation associated with sweating, lightheadedness and some chest pressure. Rule out cardiac arrhythmia Recent COVID-19 infection, not an active issue Chronic cough secondary to coved infection Plan: This is a pleasant 49 years old male who presents with episodic palpitation. With positive troponin, echocardiogram. Cardiology consult. Telemetry monitoring Start multiple vitamins, C, D and zinc Labs and medication were reviewed.. Continue same treatment. Continue with symptomatic treatment. Resume home medication. Monitor lytes and vitals. DVT and GI prophylaxis. Further recommendations depends on the clinical course of the patient DVT prophylaxis: Subcutaneous Lovenox GI Prophylaxis: Pepcid Prognosis is guarded
[2020-07-22] MEDS: CHOLECALCIFEROL 25 MCG (1000 IU) TABLET PO SCH (10:59)
[2020-07-22] MEDS: ZINC SULFATE 220 MG CAP PO SCH (10:59)
[2020-07-22] MEDS: ASCORBIC ACID 500 MG TAB PO SCH (11:00)
--- NOTE | 2020-07-22 17:20 | ECHOF ---
Referral Reason:Chest pain MEASUREMENTS -------- HEIGHT: 175.3 cm WEIGHT: 79.4 kg BP: 106/76 RVIDd: 2.9 cm (< 3.3) IVSd: 1.0 cm (0.6 - 1.1) LVIDd: 4.3 cm (3.9 - 5.3) LVPWd: 1.1 cm (0.6 - 1.1) IVSs: 1.6 cm LVIDs: 2.8 cm LVPWs: 1.3 cm LA Diam: 3.9 cm (2.7 - 3.8) LAESV Index (A-L): 26.77 ml/m Ao Diam: 3.2 cm (2.0 - 3.7) AV Cusp: 1.6 cm (1.5 - 2.6) LA Diam: 3.7 cm (2.7 - 3.8) MV EXCURSION: 19.783 mm (> 18.000) MV EF SLOPE: 132 mm/s (70 - 150) EPSS: 0.2 cm MV E Vernon: 0.61 m/s MV DecT: 294 ms MV A Vernon: 0.47 m/s MV E/A Ratio: 1.30 RAP: 5.00 mmHg RVSP: 21.84 mmHg FINDINGS -------- Sinus rhythm. This was a technically good study. LV size, wall thickness and systolic function are normal, with an EF greater than 55%. The left rios tricular size is normal. The right ventricle is normal in size. Normal LA size by volume 22+/-6 ml/m2. The right atrial size is normal. The aortic valve is trileaflet, and appears structurally normal. No aortic stenosis or regurgitation. Mild mitral regurgitation is present. Mild tricuspid regurgitation present. Right ventricular systolic pressure is normal at < 35 mmHg. There is no pulmonic regurgitation present. The aortic root size is normal. There is no pericardial effusion. CONCLUSIONS -------- 1. LV size, wall thickness and systolic function are normal, with an EF greater than 55%. 2. The left ventricular size is normal. 3. The right ventricle is normal in size. 4. Normal LA size by volume 22+/-6 ml/m2. 5. The right atrial size is normal. 6. The aortic valve is trileaflet, and appears structurally normal. No aortic stenosis or regurgitati on. 7. Mild mitral regurgitation is present. 8. Mild tricuspid regurgitation present. 9. The aortic root size is normal. 10. There is no pericardial effusion. RN HEMODIALYSIS CHARGE: Steffanie Proctor RDCS
--- NOTE | 2020-07-22 19:23 | CONS ---
CONSULTATION CHIEF COMPLAINT: Palpitations. Savage is a 49-year-old gentleman with no significant past medical history who was suffered from COVID infection about 3-4 weeks ago, comes in complaining of palpitations and sharp atypical chest pain. He has mild to moderate intensity palpitations that usually come on in the middle of the night while he is sleeping. He wakes up from sleep and he is concerned and bothered by them. Mild to moderate intensity at rest without clear-cut exacerbating factors. He states that he feels better when he sits up. There is no history of shortness of breath, leg edema, PND or orthopnea. There is no history of focal neurological deficits. There is no prior history of hypertension, diabetes, dyslipidemia. There is no prior history of coronary artery disease or congestive heart failure. EKG shows sinus rhythm and is within normal limits. First set of troponin is negative. Coronavirus is negative. Labs are otherwise unremarkable. PAST MEDICAL HISTORY: Negative for hypertension, diabetes, dyslipidemia. MEDICATIONS: None. ALLERGIES: DEMEROL. FAMILY HISTORY: Significant for premature coronary artery disease in both sets of grandparents. SOCIAL HISTORY: Negative for smoking, EtOH abuse, or drug abuse. REVIEW OF SYSTEMS: HEENT is unremarkable. CARDIAC: As described above. RESPIRATORY: Negative. GI: Negative. GENITOURINARY: Negative. ALLERGY/IMMUNOLOGY: Negative. SKIN: Negative. MUSCULOSKELETAL: Significant for arthritis. PSYCHOSOCIAL: Negative. ENDOCRINE: Negative. DERM: Negative. CONSTITUTIONAL: Negative. ONCOLOGICAL: Negative. TETRYL BLENDER OPERATOR: Negative. Rest of the system review is not relevant. EXAM: Patient is comfortable at rest. Vital signs are stable. There is no jugular venous distention. Carotid upstroke is normal. There is no bruit. CHEST exam reveals good air entry bilaterally. HEART exam reveals first and second heart sounds. No gallop. No murmur. No rub. ABDOMEN is soft, nontender. Examination of extremities did not reveal edema. Peripheral pulses are felt. EKG is within normal limits. Troponin is negative. Coronavirus test is negative. Hemoglobin is normal. Chest x-ray is within normal limits. ASSESSMENT: 1. Palpitations. 2. COVID long-hauler's syndrome. PLAN: I will obtain a 2D echo, watch him on telemetry overnight. If he is doing well, echo is normal, he can be discharged home and I will consider an outpatient event monitor if necessary and regular treadmill stress test. Thank you for allowing me to participate with this pleasant gentleman. MMRASHIDAL / IJN: [id number] /
[2020-07-22] MEDS ORDERED: FAMOTIDINE 20 MG/2 ML VIAL IV SCH (21:00)
[2020-07-22] MEDS: FAMOTIDINE 20 MG TAB PO SCH (21:48)
[2020-07-22 23:01] VITALS: RESP 16
[2020-07-23 03:36] VITALS: TEMP 98.5
[2020-07-23 07:33] VITALS: BP 113/72; PULSE 68
[2020-07-23] MEDS: FAMOTIDINE 20 MG TAB PO SCH (08:30)
[2020-07-23] MEDS: ZINC SULFATE 220 MG CAP PO SCH (08:30)
[2020-07-23] MEDS: CHOLECALCIFEROL 25 MCG (1000 IU) TABLET PO SCH (08:30)
[2020-07-23] MEDS: ASCORBIC ACID 500 MG TAB PO SCH (08:30)
[2020-07-23] MEDS: SODIUM CHLORIDE 0.9% 1,000 ML IV SCH (08:31)
[2020-07-23] MEDS ORDERED: ASPIRIN 325 MG TAB PO SCH (09:00)
[2020-07-23] MEDS ORDERED: ENOXAPARIN 40 MG/0.4 ML SYRINGE SQ SCH (09:00)
[2020-07-23 10:43] LABS: Chol/HDL Ratio 4.84; LDL Cholesterol,Calculated 148.4 mg/dL (0.0-131.0); VLDL Calculation 20.6 mg/dL (5.00-40.00)
--- NOTE | 2020-07-23 12:21 | P.PN ---
Subjective Pt is seen and examined sitting up in bed in no acute distress. He states he had palpitations again last night around 2100. Telemetry tracings at that time were unremarkable. No further chest pain. The palpitations lasted less than 2 minutes. Blood pressure 113/72 heart rate 68 afebrile maintaining oxygen saturation on room air. Echocardiogram obtained revealed preserved LV systolic function with ejection fraction greater than 55%. Mild mitral regurgitation and mild tricuspid regurgitation noted. GENERAL: Well-appearing, well-nourished and in no acute distress. NECK: Supple without JVD or thyromegaly. LUNGS: Breath sounds clear to auscultation bilaterally. Respiration equal and unlabored. No wheezes, rales or rhonchi. HEART: Regular rate and rhythm without murmurs, rubs or gallops. S1 and S2 heard. EXTREMITIES: Normal range of motion, no edema. No clubbing or cyanosis. Peripheral pulses intact. ASSESSMENT Palpitations Chest pain, atypical COVID long haulers syndrome PLAN Stable for discharge from a cardiac perspective. Follow-up in the office with Dr. Woo in 1-2 weeks. The patient will undergo outpatient event monitoring and stress testing. Nurse Practitioner note has been reviewed, I agree with a documented findings a nd plan of care. Patient was seen and examined. Objective - Vital Signs Vital signs: Vital Signs Temp 98.5 F 07/23/20 07:00 Pulse 68 07/23/20 07:00 Resp 16 07/23/20 07:00 BP 113/72 07/23/20 07:00 Pulse Ox 99 07/23/20 07:00 Intake & Output 07/22/20 07/23/20 07/23/20 18:59 06:59 18:59 Weight 79.379 kg Other: Voiding Method Toilet Toilet Toilet # Voids 2 - Labs CBC & Chem 7: 07/22/20 07:37 07/22/20 07:37 Labs: Abnormal Lab Results - Last 24 Hours (Table) 07/23/20 Range/Units 05:22 Cholesterol 213 H (0-200) mg/dL LDL Cholesterol, Calc 148.4 H (0.0-131.0) mg/dL Microbiology - Last 24 Hours (Table) 07/22/20 08:30 Blood Culture - Preliminary Blood No Growth after 24 hours 07/22/20 08:30 Blood Culture - Preliminary Blood No Growth after 24 hours
--- NOTE | 2020-07-23 22:13 | P.DS ---
Providers Date of admission: 07/22/20 09:22 Attending physician: Robby Celis MD Consults: 07/22/20 09:22 Consult Physician Urgent Consulting Provider: Omar Woo Consult Reason/Comments: Post covid chest pain and palpitations Do you want consulting provider notified?: Yes Primary care physician: Rupinder Valverde Hospital Course: Diagnoses Episodes of palpitation associated with sweating, lightheadedness and some chest pressure. 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 Patient has been tested positive for cough but about 4 weeks ago. Patient states that he has been diagnosed with Coved on June 17 he had some fever fatigue and all his symptoms resolved except for chronic cough, his doctor prescribed him cough medicine about 2 weeks ago. His PCP is Dr. Valverde However over the last week and a half he's been waking up in the middle of night about 3-5 times at the time with palpitation, he feels that because of his heart very fast that last somewhere between 2-5 minutes, These episodes Associated with nausea, sweating, some lightheadedness and at times some pain in his jaw and neck. Sometimes also he feels some chest pressure Vitas looks stable, labs show an unremarkable CBC, INR, BMP and liver enzymes. ProBNP is thirsty. Troponin is negative less than 0.012. D-dimer is negative less than 0.17. EKG showing normal sinus rhythm at 70 bpm with no significant ST-T changes patient has been evaluated by knitted goods shaper. Echocardiogram showed ejection fraction more than 55% Patient told me last night at 8:30 he developed such an episode when I checked the telemetry with bed side nurse showing no such arrhythmia during that time reported by the patient His palpitation episodes is thought due to Covid infection. Network Planner cleared the patient for discharge with recommendation for close outpatient follow-up for possible stress test and event monitor. Patient does not need aspirin upon discharge per knitted goods shaper recommendation when discussed with their team Problems and management plan were discussed with the patient and he verbalized understanding and acceptance Patient was found stable and can be discharged home however he needs follow-up as an outpatient. Patient was instructed to follow up with PCP Dr. Valverde within one week and patient agrees Patient was instructed to follow up with knitted goods shaper Dr. Woo in 1-2 weeks and he agrees to call and make appointment Physical exam Gen: patient is a AAOx3, no distress CVS: S1-S2, RRR, no murmur Lungs: B/L CTA, no wheezing Abdomen: soft, no distention, no tenderness, positive bowel sounds Extremity: no leg edema or induration Time spent more than 35 minutes Patient Condition at Discharge: Fair Plan - Discharge Summary Discharge Rx Participant: No New Discharge Prescriptions: New Zinc Sulfate [Orazinc] 220 mg PO DAILY #20 cap Ascorbic Acid [Vitamin C] 1,000 mg PO DAILY #40 tab Cholecalciferol [Vitamin D3 (25 Mcg = 1000 Iu)] 50 mcg PO DAILY #40 tablet Discharge Medication List Ascorbic Acid [Vitamin C] 1,000 mg PO DAILY #40 tab 07/23/20 [Rx] Cholecalciferol [Vitamin D3 (25 Mcg = 1000 Iu)] 50 mcg PO DAILY #40 tablet 07/23/20 [Rx] Zinc Sulfate [Orazinc] 220 mg PO DAILY #20 cap 07/23/20 [Rx] Follow up Appointment(s)/Referral(s): Rupinder Valverde III, MD [Primary Care Provider] - 1-2 days Omar Woo MD [STAFF PHYSICIAN] - 2 Weeks (office will call patient with appointment ) Patient Instructions/Handouts: Coronavirus Disease 2019 (COVID-19), Angina (DC) Activity/Diet/Wound Care/Special Instructions: Heart healthy diet Activity is restricted till you see your doctor Discharge Disposition: HOME SELF-CARE
== END 2020-07-23 12:53 | disposition home or self-care (01) ==
LOC: EC 07:14 → 6NMEDSUR 09:22
PROVIDERS: ADMIT Internal Medicine; ATTEND Internal Medicine
DX: R07.89 Other chest pain (principal); R05 Cough; R53.83 Other fatigue; R00.2 Palpitations; R42 Dizziness and giddiness; R11.0 Nausea; R68.84 Jaw pain; M54.2 Cervicalgia; B94.8 Sequelae of other specified infectious and parasitic diseases; Z88.5 Allergy status to narcotic agent; L30.9 Dermatitis, unspecified; Z91.048 Other nonmedicinal substance allergy status; I08.1 Rheumatic disorders of both mitral and tricuspid valves; Z82.49 Family history of ischemic heart disease and other diseases of the circulatory system
CPT/HCPCS: 93005 ×2; 96374; 99285; 36415; 93306; 85379; 83880; 80061; 80053; 84443; 82550; 83735; 84484; 85025; 85610; 85730; 86140; 87040; 87635; 71046; G0378 ×2; C9113

== ENCOUNTER 2020-09-05 10:55 | Observation (INO) | payer BC ==
[2020-09-05] MEDS ORDERED: SODIUM CHLORIDE 0.9% 500 ML 500 ML IV STA (11:21)
[2020-09-05] MEDS ORDERED: PANTOPRAZOLE 40 MG/10 ML VIAL IVP STA (11:22)
[2020-09-05] MEDS ORDERED: MAG HYDROX/AL HYDROX/SIMETH 30 ML, HYOSCYAMINE ELIXIR 10 ML, LIDOCAINE VISCOUS 2% 10 ML PO STA ×3 (11:22)
[2020-09-05 11:46] LABS: Basophils # (A) 0.1 k/uL (0-0.2); Basophils % (A) 1 %; Eosinophils # (A) 0.3 k/uL (0-0.7); Eosinophils % (A) 6 %; HCT 40.6 % (39.0-53.0); HGB 14.3 gm/dL (13.0-17.5); Lymphocytes # (A) 1.9 k/uL (1.0-4.8); Lymphocytes % (A) 38 %; MCH 30.7 pg (25.0-35.0); MCHC 35.1 g/dL (31.0-37.0); MCV 87.5 fL (80.0-100.0); Mean Platelet Volume 7.3; Monocytes # (A) 0.3 k/uL (0-1.0); Monocytes % (A) 6 %; Neutrophils # (A) 2.3 k/uL (1.3-7.7); Neutrophils % (A) 46 %; Platelet Count 207 k/uL (150-450); RBC 4.64 m/uL (4.30-5.90); RDW 12.9 % (11.5-15.5); WBC 5.1 k/uL (3.8-10.6)
[2020-09-05 11:57] LABS: ALT 20 U/L (4-49); AST 24 U/L (17-59); African American GFR (CKD) >90 (>60 ml/min/1.73 sqM); Albumin 4.7 g/dL (3.5-5.0); Alkaline Phosphatase 55 U/L (38-126); Anion Gap 8 mmol/L; Blood Urea Nitrogen 17 mg/dL (9-20); Calcium 9.9 mg/dL (8.4-10.2); Carbon Dioxide 25 mmol/L (22-30); Chloride 106 mmol/L (98-107); Glucose 97 mg/dL (74-99); Lipase 89 U/L (23-300); Magnesium 2.4 mg/dL (1.6-2.3); Non-African American GFR(CKD) 89 (>60 ml/min/1.73 sqM); Sodium 139 mmol/L (137-145); Total Bilirubin 0.8 mg/dL (0.2-1.3); Total Protein 7.3 g/dL (6.3-8.2)
--- NOTE | 2020-09-05 11:58 | ED ---
General Adult HPI - General Chief complaint: Chest Pain Stated complaint: chest pain Time Seen by Provider: 09/05/20 11:08 Source: patient, RN notes reviewed, old records reviewed Mode of arrival: wheelchair Limitations: no limitations - History of Present Illness Initial comments: 49-year-old male presenting for evaluation of indigestion, chest discomfort, and palpitations. Patient has had symptoms following a coronavirus diagnosis in May. He states he has followed with cardiology and has had an echo. He states that he's had some intermittent episodes of palpitations which have been ongoing. Today he was at work, he began feeling somewhat short of breath, had a chest discomfort. He states that he believes this is originating from a known history of hiatal hernia and gastric reflux. He was started on omeprazole within the past several days, once daily. He has an appointment with gastroenterology but this is not until the of this month. - Related Data Previous Rx's Medication Instructions Recorded Ascorbic Acid [Vitamin C] 1,000 mg PO DAILY #40 tab 07/23/20 Cholecalciferol [Vitamin D3 (25 50 mcg PO DAILY #40 tablet 07/23/20 Mcg = 1000 Iu)] Zinc Sulfate [Orazinc] 220 mg PO DAILY #20 cap 07/23/20 Allergies Allergy/AdvReac Type Severity Reaction Status Date / Time meperidine [From Demerol] AdvReac Nausea Verified 09/05/20 11:07 mold,cat dander AdvReac Unknown Uncoded 09/05/20 11:07 Review of Systems ROS Statement: Those systems with pertinent positive or pertinent negative responses have been documented in the HPI. ROS Other: All systems not noted in ROS Statement are negative. Past Medical History Past Medical History: Skin Disorder Additional Past Medical History / Comment(s): stomach burning feeling and discomfort, hx eczema, recent covid. History of Any Multi-Drug Resistant Organisms: None Reported Additional Past Surgical History / Comment(s): urinary restriction repair/removal of scar tissue Past Anesthesia/Blood Transfusion Reactions: Motion Sickness, Postoperative Nausea & Vomiting (PONV) Past Psychological History: No Psychological Hx Reported Smoking Status: Never smoker Past Alcohol Use History: Occasional Past Drug Use History: None Reported - Past Family History Father Family Medical History: No Reported History Mother Family Medical History: No Reported History General Exam Limitations: no limitations General appearance: alert, in no apparent distress Head exam: Present: atraumatic, normocephalic Eye exam: Present: normal appearance, PERRL ENT exam: Present: normal exam Neck exam: Present: normal inspection. Absent: tenderness, meningismus Respiratory exam: Present: normal lung sounds bilaterally. Absent: respiratory distress, wheezes Cardiovascular Exam: Present: regular rate, normal rhythm GI/Abdominal exam: Present: soft. Absent: distended, tenderness, guarding Extremities exam: Present: normal inspection, normal capillary refill. Absent: pedal edema, joint swelling, calf tenderness Back exam: Present: normal inspection Neurological exam: Present: alert, oriented X3, CN II-XII intact. Absent: motor sensory deficit Psychiatric exam: Present: normal affect, normal mood Skin exam: Present: warm, dry, intact. Absent: cyanosis, diaphoretic Course Vital Signs 09/05/20 11:01 Temperature 97.4 F L Pulse Rate 67 Respiratory 18 Rate Blood Pressure 117/75 O2 Sat by Pulse 100 Oximetry EKG Findings - EKG Comments: EKG Findings:: EKG: Normal sinus rhythm, rate is 62, KY interval 150, QRS duration 90, QTC 393, no ST segment elevation. Medical Decision Making - Medical Decision Making [id number] male with chest pain. Patient has EKG shows sinus rhythm without ST segment elevation. Chest x-ray is clear, normal laboratory testing: CBC, CMP, d-dimer, initial troponin. Patient does have some ongoing symptoms. He will be kept for observation. Both cardiology and GI placed on consult. Dr. Rothman is aware of patient. - Lab Data Result diagrams: 09/05/20 11:34 09/05/20 11:34 Lab Results 09/05/20 09/05/20 09/05/20 Range/Units 11:34 11:34 11:34 WBC 5.1 (3.8-10.6) k/uL RBC 4.64 (4.30-5.90) m/uL Hgb 14.3 (13.0-17.5) gm/dL Hct 40.6 (39.0-53.0) % MCV 87.5 (80.0-100.0) fL MCH 30.7 (25.0-35.0) pg MCHC 35.1 (31.0-37.0) g/dL RDW 12.9 (11.5-15.5) % Plt Count 207 (150-450) k/uL MPV 7.3 Neutrophils % 46 % Lymphocytes % 38 % Monocytes % 6 % Eosinophils % 6 % Basophils % 1 % Neutrophils # 2.3 (1.3-7.7) k/uL Lymphocytes # 1.9 (1.0-4.8) k/uL Monocytes # 0.3 (0-1.0) k/uL Eosinophils # 0.3 (0-0.7) k/uL Basophils # 0.1 (0-0.2) k/uL PT 10.2 (9.0-12.0) sec INR 0.9 (<1.2) APTT 23.5 (22.0-30.0) sec D-Dimer 0.23 (<0.60) mg/L FEU Sodium 139 (137-145) mmol/L Potassium 4.0 (3.5-5.1) mmol/L Chloride 106 (98-107) mmol/L Carbon Dioxide 25 (22-30) mmol/L Anion Gap 8 mmol/L BUN 17 (9-20) mg/dL Creatinine 1.00 (0.66-1.25) mg/dL Est GFR (CKD-EPI)AfAm >90 (>60 ml/min/1.73 sqM) Est GFR (CKD-EPI)NonAf 89 (>60 ml/min/1.73 sqM) Glucose 97 (74-99) mg/dL Calcium 9.9 (8.4-10.2) mg/dL Magnesium 2.4 H (1.6-2.3) mg/dL Total Bilirubin 0.8 (0.2-1.3) mg/dL AST 24 (17-59) U/L ALT 20 (4-49) U/L Alkaline Phosphatase 55 (38-126) U/L Troponin I (0.000-0.034) ng/mL Total Protein 7.3 (6.3-8.2) g/dL Albumin 4.7 (3.5-5.0) g/dL Lipase 89 (23-300) U/L 09/05/20 Range/Units 11:34 WBC (3.8-10.6) k/uL RBC (4.30-5.90) m/uL Hgb (13.0-17.5) gm/dL Hct (39.0-53.0) % MCV (80.0-100.0) fL MCH (25.0-35.0) pg MCHC (31.0-37.0) g/dL RDW (11.5-15.5) % Plt Count (150-450) k/uL MPV Neutrophils % % Lymphocytes % % Monocytes % % Eosinophils % % Basophils % % Neutrophils # (1.3-7.7) k/uL Lymphocytes # (1.0-4.8) k/uL Monocytes # (0-1.0) k/uL Eosinophils # (0-0.7) k/uL Basophils # (0-0.2) k/uL PT (9.0-12.0) sec INR (<1.2) APTT (22.0-30.0) sec D-Dimer (<0.60) mg/L FEU Sodium (137-145) mmol/L Potassium (3.5-5.1) mmol/L Chloride (98-107) mmol/L Carbon Dioxide (22-30) mmol/L Anion Gap mmol/L BUN (9-20) mg/dL Creatinine (0.66-1.25) mg/dL Est GFR (CKD-EPI)AfAm (>60 ml/min/1.73 sqM) Est GFR (CKD-EPI)NonAf (>60 ml/min/1.73 sqM) Glucose (74-99) mg/dL Calcium (8.4-10.2) mg/dL Magnesium (1.6-2.3) mg/dL Total Bilirubin (0.2-1.3) mg/dL AST (17-59) U/L ALT (4-49) U/L Alkaline Phosphatase (38-126) U/L Troponin I <0.012 (0.000-0.034) ng/mL Total Protein (6.3-8.2) g/dL Albumin (3.5-5.0) g/dL Lipase (23-300) U/L Disposition Clinical Impression: Chest pain Disposition: ADMITTED IP TO THIS HOSP Condition: Stable Is patient prescribed a controlled substance at d/c from ED?: No Referrals: Rupinder Valverde III, MD [Primary Care Provider] - 1-2 days Decision to Admit Reason: Admit from EC Decision Date: 09/05/20 Decision Time: 13:24
[2020-09-05 12:02] LABS: D-Dimer 0.23 mg/L FEU (<0.60); INR 0.9 (<1.2); Partial Thromboplastin Time 23.5 sec (22.0-30.0); Prothrombin Time 10.2 sec (9.0-12.0)
--- NOTE | 2020-09-05 12:19 | XR ---
EXAMINATION TYPE: XR chest 2V DATE OF EXAM: 09/05/2020 CLINICAL HISTORY: Chest Pain. TECHNIQUE: Frontal and lateral view of the chest. COMPARISON: 07/22/2020 FINDINGS: The cardiomediastinal silhouette is within normal limits for size. Pulmonary vasculature i s normal. There is no focal air space opacity. No pleural effusion. No pneumothorax seen. No acute d isplaced osseous fracture. IMPRESSION: No acute cardiopulmonary process.
[2020-09-05] MEDS ORDERED: NALOXONE 0.4 MG/ML 1 ML VIAL IV PRN (13:21)
[2020-09-05] MEDS ORDERED: TEMAZEPAM 15 MG CAP PO PRN (15:41)
[2020-09-05] MEDS ORDERED: ALPRAZolam 0.25 MG TAB PO PRN (15:41)
[2020-09-05] MEDS ORDERED: HYDROmorphone 0.5 MG/0.5 ML SYRINGE IVP PRN (15:41)
[2020-09-05] MEDS ORDERED: HYDROcodone/APAP 5-325MG 1 EACH TAB PO PRN (15:41)
[2020-09-05] MEDS ORDERED: IOPAMIDOL CONTRAST (ORAL USE) VIAL PO PRN (15:47)
--- NOTE | 2020-09-05 16:16 | HP ---
HISTORY AND PHYSICAL DATE OF SERVICE: 09/05/2020 CHIEF COMPLAINT: Chest discomfort. HISTORY OF PRESENT ILLNESS: This 49-year-old gentleman with a past medical history of multiple medical issues including skin disorder, history of stomach burning pain, history of hiatal hernia, history of eczema, history of motion sickness, possible nausea, vomiting, being followed by Dr. Valverde in the outpatient setting also had a recent episode of Covid. The patient subsequent had tachycardia and was admitted for further evaluation. The patient has had a stress test as an outpatient. Currently the patient is having chest and epigastric pain which was pressure type heavy type of pain, intermittent. The patient also had rest pains also. The patient is unable to exactly describe the character of the pain, but the pain was moderate to severe. The patient also was feeling some shortness of breath also. The pain was sometimes radiating upwards. Also patient EGD by Dr. Woo previously. Because of increasing difficulty the patient came to [facility] and was admitted for further evaluation and treatment. Patient followed by Dr. Valverde in the outpatient setting. There is no history of fever or rigors or chills. PAST MEDICAL: Skin disorder, history of eczema, history of motion sickness, postop nausea, vomiting. MEDICATIONS: Prior to admission, omeprazole 20 mg daily. ALLERGIES: Demerol and mold and cat dander. FAMILY HISTORY: Both grandfathers actually in in the 40s probably because of cardiac issues, exact etiology unknown at this time. REVIEW OF SYSTEMS: ENT: No diminished vision or hearing. CARDIOVASCULAR: As mentioned earlier. GI: As mentioned. : No dysuria. NERVOUS SYSTEM: No numbness or weakness. ALLERGY: No hayfever. MUSCULOSKELETAL: As mentioned. ENDOCRINE: No history of diabetes or hypothyroidism. CONSTITUTIONAL: As mentioned earlier. DERMATOLOGY: As mentioned earlier. RHEUMATOLOGY: Negative. PSYCHIATRY: Negative. PHYSICAL EXAMINATION: Patient is alert and oriented x3. Pulse is 67, blood pressure 174/75, respirations 18, temperature 97.4, pulse ox 100 percent room air. HEENT: Normocephalic. Conjunctivae normal. NECK: Supple. No JVD. HEART: S1, S2 muffled. RESPIRATORY SYSTEM: Breath sounds diminished at the bases. No rhonchi no crackles. ABDOMEN: Soft, nontender. No mass palpable. LEGS: No edema, no swelling. NERVOUS SYSTEM: Higher functions as mentioned earlier. Moves all 4 limbs. No focal motor or sensory deficits. LYMPHATICS: No lymph nodes palpable in the neck, axillae or groin. SKIN: No ulcer, rash, bleeding. JOINTS: No active deforming arthropathy. LABS: CBC within normal limits. D-dimer 0.23. Magnesium is 2.4. ASSESSMENT: 1. Chest and epigastric pain possible coronary disease. 2. Rule out GERD and hiatal hernia. 3. History of recent COVID syndrome. 4. History of recurrent palpitations. 5. History of eczema. 6. History of motion sickness. 7. History of postop nausea and vomiting. 8. FULL CODE. RECOMMENDATIONS AND DISCUSSION: In this 49-year-old gentleman who presented with multiple complex medical issues, we will monitor the patient closely, continue the current management and symptomatic treatment. D-dimer is negative. However, a chest CTA done on 05/07 for chest pain did not show any evidence of pulmonary embolism. Two-D echo with Doppler was also negative. A stress test in 2016 was borderline positive apparently. Prognosis guarded because of multiple complex medical issues. Further recommendations to follow. Will follow with Cardiology and further recommendations as necessary see orders for details. MMODL / IJN: [id number] /
[2020-09-05 17:22] LABS: C Reactive Protein <0.5 mg/dL (<1.0)
--- NOTE | 2020-09-05 18:53 | CT ---
EXAMINATION TYPE: CT ChestAbdPelvis wo con DATE OF EXAM: 09/05/2020 INDICATION: epigastric/chest pain. hx of hernia. COMPARISON: 05/07/2018 CT DLP: 651.4 mGycm CONTRAST: Performed with Oral Contrast . No intravenous contrast. TECHNIQUE: Axial images at 5 mm thick sections. Reconstructed images in the coronal plane. Delayed images through the kidneys. FINDINGS: CT CHEST: Portion of the thyroid visualized is normal. No suspicious lung nodules or focal infiltrates are present. No enlarged mediastinal or hilar adenopathy is evident. The ascending aorta diameter at the level of the main pulmonary artery is 3.6 cm. The main pulmonary artery diameter at the bifurcation is 2.[address] ABDOMEN: Liver: Normal Spleen: Normal Pancreas: Normal Adrenal glands: The adrenal glands are normal. Gallbladder: Normal Kidneys: No masses are evident. No hydronephrosis is present. No cysts are present. No renal stone s are evident. Aorta: Normal Inferior vena cava: Normal. CT PELVIS: Loops of bowel within the abdomen and pelvis are normal. There are scattered diverticuli within t he sigmoid colon. Appendix: Normal as visualized. Urinary bladder: Normal. Genitourinary structures: Prostate appears slightly prominent. Osseous structures: No suspicious lytic or sclerotic lesions. IMPRESSIONS: 1. Diverticulosis without acute diverticulitis sigmoid colon. 2. No suspicious abnormality to account for chest pain
[2020-09-05] MEDS: ACETAMINOPHEN TAB 325 MG TAB PO PRN (19:54)
[2020-09-05] MEDS: PANTOPRAZOLE 40 MG/10 ML VIAL IVP SCH (19:54)
--- NOTE | 2020-09-06 07:46 | P.CRDCN ---
History of Present Illness Consult date: 09/06/20 Chief complaint: Chest pain History of present illness: This is a very pleasant 49-year-old gentleman who sees Dr. Woo in the office regularly with no significant past medical history presented to the hospital complaining of chest discomfort. Earlier this year he was diagnosed with COVID infection and since then he has not felt well. He presented to the hospital complaining of intermittent episodes of chest discomfort. The discomfort is mainly in the epigastric area as well as lower chest. The chest discomfort seems to be quite atypical for angina. No cystitis symptoms of shortness of breath or dizziness or lightheadedness or any feeling of heart racing or fluttering or syncope. He is in process of being seen by a value analysis coordinator and having a workup for hiatal hernia. The workup this time is unremarkable including an EKG showing sinus rhythm without significant ST or T-wave abnormalities and cardiac enzymes came in to be unremarkable and x-ray also came in to be unremarkable. Past Medical History Past Medical History: Skin Disorder Additional Past Medical History / Comment(s): stomach burning feeling and discomfort, hx eczema, recent covid. History of Any Multi-Drug Resistant Organisms: None Reported Additional Past Surgical History / Comment(s): urinary restriction repair/removal of scar tissue Past Anesthesia/Blood Transfusion Reactions: Motion Sickness, Postoperative Nausea & Vomiting (PONV) Past Psychological History: No Psychological Hx Reported Smoking Status: Never smoker Past Alcohol Use History: Occasional Past Drug Use History: None Reported - Past Family History Father Family Medical History: No Reported History Mother Family Medical History: No Reported History Medications and Allergies Home Medications Medication Instructions Recorded Confirmed Type Omeprazole 20 mg PO BID 09/05/20 09/05/20 History Allergies Allergy/AdvReac Type Severity Reaction Status Date / Time meperidine [From Demerol] AdvReac Nausea Verified 09/05/20 13:24 mold,cat dander Allergy Dyspnea Uncoded 09/05/20 13:24 Physical Exam Vitals: Vital Signs Temp Pulse Pulse Resp BP BP Pulse Ox 09/06/20 07:00 98.0 F 66 18 110/72 100 09/06/20 01:45 97.8 F 63 17 104/67 98 09/05/20 19:51 97.8 F 55 L 17 106/69 100 09/05/20 14:02 98.0 F 69 18 118/73 100 09/05/20 14:00 18 09/05/20 13:42 70 18 115/82 97 09/05/20 11:01 97.4 F L 67 18 117/75 100 Intake and Output 09/05/20 09/06/20 09/06/20 22:59 06:59 14:59 Output Total 350 Balance -350 Output: Urine 350 Other: Voiding Method Toilet Toilet # Voids 1 - Constitutional General appearance: no acute distress - Respiratory Respiratory: bilateral: CTA - Cardiovascular Rhythm: regular Heart sounds: normal: S1, S2 Results 09/05/20 11:34 09/05/20 11:34 Cardiac Enzymes 09/05/20 09/05/20 09/05/20 Range/Units 11:34 11:34 14:28 AST 24 (17-59) U/L Troponin I <0.012 <0.012 (0.000-0.034) ng/mL 09/05/20 Range/Units 17:07 AST (17-59) U/L Troponin I <0.012 (0.000-0.034) ng/mL Coagulation 09/05/20 Range/Units 11:34 PT 10.2 (9.0-12.0) sec APTT 23.5 (22.0-30.0) sec CBC 09/05/20 Range/Units 11:34 WBC 5.1 (3.8-10.6) k/uL RBC 4.64 (4.30-5.90) m/uL Hgb 14.3 (13.0-17.5) gm/dL Hct 40.6 (39.0-53.0) % Plt Count 207 (150-450) k/uL Comprehensive Metabolic Panel 09/05/20 Range/Units 11:34 Sodium 139 (137-145) mmol/L Potassium 4.0 (3.5-5.1) mmol/L Chloride 106 (98-107) mmol/L Carbon Dioxide 25 (22-30) mmol/L BUN 17 (9-20) mg/dL Creatinine 1.00 (0.66-1.25) mg/dL Glucose 97 (74-99) mg/dL Calcium 9.9 (8.4-10.2) mg/dL AST 24 (17-59) U/L ALT 20 (4-49) U/L Alkaline Phosphatase 55 (38-126) U/L Total Protein 7.3 (6.3-8.2) g/dL Albumin 4.7 (3.5-5.0) g/dL Current Medications Generic Name Dose Route Start Last Admin Trade Name Freq PRN Reason Stop Dose Admin Acetaminophen 650 mg 09/05/20 13:21 09/05/20 19:54 Acetaminophen Tab 325 Mg Tab PO 650 mg Q6HR PRN Administration Mild Pain or Fever > 100.5 Hydrocodone Bitart/Acetaminophen 1 each 09/05/20 15:41 Hydrocodone/Apap 5-325mg 1 Each Tab PO Q6HR PRN Pain Alprazolam 0.25 mg 09/05/20 15:41 Alprazolam 0.25 Mg Tab PO TID PRN Anxiety Hydromorphone HCl 0.5 mg 09/05/20 15:41 Hydromorphone 0.5 Mg/0.5 Ml Syringe IVP Q6HR PRN Severe Pain Iopamidol 30 ml 09/05/20 15:47 09/05/20 16:56 Iopamidol Contrast (Oral Use) Vial PO 09/06/20 15:48 30 ml Q60M PRN Administration CT Scan Naloxone HCl 0.2 mg 09/05/20 13:21 Naloxone 0.4 Mg/Ml 1 Ml Vial IV Q2M PRN Opioid Reversal Pantoprazole Sodium 40 mg 09/05/20 21:00 09/05/20 19:54 Pantoprazole 40 Mg/10 Ml Vial IVP 40 mg BID ISAAC Administration Temazepam 15 mg 09/05/20 15:41 Temazepam 15 Mg Cap PO HS PRN Insomnia Intake and Output 09/05/20 09/06/20 09/06/20 22:59 06:59 14:59 Output Total 350 Balance -350 Output: Urine 350 Other: Voiding Method Toilet Toilet # Voids 1 09/05/20 11:34 09/05/20 11:34 Assessment and Plan Assessment: Assessment #1 atypical chest discomfort. Acute coronary syndrome was ruled out Plan #1 I advised the patient to undergo a stress test #2 the patient would like to have the stress test as an inpatient #3 I will schedule the patient to undergo the stress test this coming Tuesday
[2020-09-06] MEDS: PANTOPRAZOLE 40 MG/10 ML VIAL IVP SCH ×2 (08:44→20:05)
[2020-09-06 08:56] LABS: African American GFR (CKD) 82.4 (60.0-200.0); Anion Gap 5.6 mmol/L (4.00-12.00); BUN/Creat Ratio 13.33 Ratio (12.00-20.00); Carbon Dioxide 28.4 mmol/L (21.6-31.8); Non-African American GFR(CKD) 71.1 (60.0-200.0); Potassium 4.5 mmol/L (3.5-5.5)
[2020-09-06] MEDS ORDERED: PANTOPRAZOLE 40 MG/10 ML VIAL IV SCH (09:00)
[2020-09-06 09:16] LABS: Basophils # (A) 0.05 X 10*3/uL (0.00-0.10); Eosinophils # (A) 0.28 X 10*3/uL (0.04-0.35); Eosinophils % (A) 5.6 %; HCT 40.7 % (39.6-50.0); HGB 13.1 g/dL (13.0-17.0); Lymphocytes # (A) 1.64 X 10*3/uL (0.90-5.00); Lymphocytes % (A) 32.7 %; MCH 29.7 pg (27.0-32.0); MCHC 32.2 g/dL (32.0-37.0); MCV 92.3 fL (80.0-97.0); Mean Platelet Volume 10.5 fL (9.5-12.2); Monocytes # (A) 0.41 X 10*3/uL (0.20-1.00); Monocytes % (A) 8.2 %; Neutrophils # (A) 2.62 X 10*3/uL (1.80-7.70); Neutrophils % (A) 52.1 %; Platelet Count 195 X 10*3/uL (140-440); RBC 4.41 X 10*6/uL (4.40-5.60); RDW 13.1 % (11.5-14.5); WBC 5.02 X 10*3/uL (4.50-10.00)
[2020-09-06 10:11] LABS: Appearance,Urine Clear (Clear); Bilirubin,Urine Negative (Negative); Blood,Urine Negative (Negative); Color,Urine Light Yellow; Glucose,Urine (UA) Negative (Negative); Ketones,Urine Negative (Negative); Leukocyte Esterase,Urine Negative (Negative); Nitrite,Urine Negative (Negative); PH, Urine 6.5 (5.0-8.0); Protein,Urine Negative (Negative); Specific Gravity,Urine 1.006 (1.001-1.035); Urobilinogen,Urine <2.0 mg/dL (<2.0)
[2020-09-06 10:40] LABS: Amphetamine Screen,Urine Not Detected (NotDetected); Barbiturate Screen,Urine Not Detected (NotDetected); Benzodiazepines Screen,Urine Not Detected (NotDetected); Cocaine Screen,Urine Not Detected (NotDetected); Methadone Screen, Urine Not Detected (NotDetected); Opiate Screen,Urine Not Detected (NotDetected); Oxycodone Screen, Urine Not Detected (NotDetected); Phencyclidine Screen,Urine Not Detected (NotDetected); Tricyclic Antidepressant,Urine Not Detected (NotDetected); Urn Cannabinoid Scrn Not Detected (NotDetected)
[2020-09-06] MEDS: ACETAMINOPHEN TAB 325 MG TAB PO PRN ×2 (13:44→20:05)
--- NOTE | 2020-09-06 18:06 | PN ---
PROGRESS NOTE DATE OF SERVICE: 09/06/2020. HISTORY: This 43-year-old gentleman admitted with chest pain also had some epigastric pain. The patient is also evaluated for hiatal hernia as well. A CT scan of the chest, abdomen and pelvis was done showing some diverticulosis without any diverticulitis. No suspicious abnormality was demonstrated in the CT scan. Cardiology following the patient, planning a stress test on Tuesday. No chest pain. No palpitations. No fever. PHYSICAL EXAMINATION: Pulse 62, blood pressure 120/72, respiration 18, temperature normal, pulse ox 98% on room air. HEENT: S1, S2 muffled. RESPIRATION: Breath sounds diminished in the bases. ABDOMEN: Soft. NERVOUS SYSTEM: No focal deficits. LABS: CBC, BMP within normal limits. ASSESSMENT: 1. Chest pain possible unstable angina. Rule out coronary artery disease. 2. Possible GERD and hiatal hernia. 3. History of recent Covid and post-Covid syndrome. 4. History of recurrent palpitations. 5. History of eczema. 6. History of motion sickness. 7. History of postop nausea, vomiting. 8. FULL CODE. RECOMMENDATIONS AND DISCUSSION: I recommend to continue current management and symptomatic treatment. EKG and telemetry monitoring. Guarded prognosis because of multiple complex medical conditions. Further recommendations to follow. MMODL / IJN: [id number] /
--- NOTE | 2020-09-07 07:24 | P.PN ---
Subjective Progress Note Date: 09/07/20 Principal diagnosis: Chest pain This is a pleasant 49-year-old gentleman with no significant past medical history who was admitted to the hospital with chest discomfort and ruled out for acute coronary syndrome. He was seen today. He continues to have intermittent episodes of chest discomfort. I'm going to schedule the patient to undergo a stress test tomorrow morning. Objective - Vital Signs Vital signs: Vital Signs Temp 98.3 F 09/07/20 01:53 Pulse 68 09/07/20 01:53 Resp 17 09/07/20 01:53 BP 110/67 09/07/20 01:53 Pulse Ox 98 09/07/20 01:53 Intake & Output 09/06/20 09/07/20 09/07/20 18:59 06:59 18:59 Intake Total 200 Balance 200 Intake: Oral 200 Other: Voiding Method Toilet Toilet # Voids 2 1 - Constitutional General appearance: Present: no acute distress - Respiratory Respiratory: bilateral: CTA - Cardiovascular Rhythm: regular Heart sounds: normal: S1, S2 - Labs CBC & Chem 7: 09/06/20 06:49 09/06/20 06:49 Assessment and Plan Assessment: Assessment #1 atypical chest discomfort. Acute coronary syndrome was ruled out Plan #1 I advised the patient to undergo a stress test #2 further recommendation to follow that
[2020-09-07] MEDS: PANTOPRAZOLE 40 MG/10 ML VIAL IVP SCH ×2 (07:48→20:23)
--- NOTE | 2020-09-07 08:53 | P.CONS ---
History of Present Illness - Reason for Consult Consult date: 09/06/20 Reflux Requesting physician: Sanjiv Rothman - Chief Complaint Chest pain, palpitations - History of Present Illness 49-year-old male with a medical history significant for eczema, motion sickness, small hiatal hernia and recent episode of COVID-19 presents to the hospital due to complaints of chest pain and palpitations. He reports intermittent episodes of chest discomfort with rapid beating heart and palpitations. He states that prior to presenting this happened while he was sitting down working at the computer. Previously he has had evaluation with EGD on 06/12/18 for epigastric pain and was found to have a small hiatal hernia and mild antral gastritis and duodenitis. Recently he has restarted omeprazole daily to see if this helps with his symptoms. On presentation computed tomography scan of the chest and abdomen was essentially negative for any acute intra-abdominal pathology or intrathoracic pathology with only diverticulosis noted. WBC 5, hemoglobin 13.1, platelet count 195,000, total bilirubin 0.8, alkaline phosphatase 58, AST 24 and ALT 20. Review of Systems REVIEW OF SYSTEMS: CONSTITUTIONAL: Denies any fevers, chills, weight change or fatigue. CARDIOVASCULAR: Denies any chest pain currently but did have chest discomfort, palpitations and the sensation of tachycardia prior to presentation. RESPIRATORY: Denies any shortness of breath, hemoptysis or cough. GENITOURINARY: No dysuria or hematuria. MUSCULOSKELETAL: No weakness reported. SKIN: Denies any new rashes or lesions, jaundice or pallor. PSYCHIATRIC: Denies any depression or anxiety. NEUROLOGY: Denies headache, denies any new focal deficits. EARS/NOSE/THROAT: No recent hearing change, congestion, nasal discharge or sore throat. EYES: No pain in eyes, discharge or change in vision. GASTROINTESTINAL: As per HPI. Past Medical History Past Medical History: Skin Disorder Additional Past Medical History / Comment(s): stomach burning feeling and di [place], hx eczema, recent covid. History of Any Multi-Drug Resistant Organisms: None Reported Additional Past Surgical History / Comment(s): urinary restriction repair/removal of scar tissue Past Anesthesia/Blood Transfusion Reactions: Motion Sickness, Postoperative Nausea & Vomiting (PONV) Past Psychological History: No Psychological Hx Reported Smoking Status: Never smoker Past Alcohol Use History: Occasional Past Drug Use History: None Reported - Past Family History Father Family Medical History: No Reported History Mother Family Medical History: No Reported History Medications and Allergies Home Medications Medication Instructions Recorded Confirmed Type Omeprazole 20 mg PO BID 09/05/20 09/05/20 History Allergies Allergy/AdvReac Type Severity Reaction Status Date / Time meperidine [From Demerol] AdvReac Nausea Verified 09/05/20 13:24 mold,cat dander Allergy Dyspnea Uncoded 09/05/20 13:24 Physical Exam Vitals: Vital Signs Temp Pulse Pulse Resp BP BP Pulse Ox 09/06/20 08:42 100 09/06/20 08:00 18 09/06/20 07:00 98.0 F 66 18 110/72 100 09/06/20 01:45 97.8 F 63 17 104/67 98 09/05/20 19:51 97.8 F 55 L 17 106/69 100 09/05/20 14:02 98.0 F 69 18 118/73 100 09/05/20 14:00 18 09/05/20 13:42 70 18 115/82 97 09/05/20 11:01 97.4 F L 67 18 117/75 100 Intake and Output 09/05/20 09/06/20 09/06/20 22:59 06:59 14:59 Intake Total 200 Output Total 350 Balance -350 200 Intake: Oral 200 Output: Urine 350 Other: Voiding Method Toilet Toilet Toilet # Voids 1 On physical examination, patient appears comfortable in no apparent distress. HEAD: Normocephalic, atraumatic. EYES: No scleral icterus. No conjunctival injection. MOUTH: No lesions, tongue midline. NECK: Trachea midline, no gross abnormalities. CHEST: Clear to auscultation with no wheezing or rhonchi appreciated. HEART: Regular rate and rhythm. ABDOMEN: Soft, thin and nontender to palpation. Bowel sounds are positive. No organomegaly. No guarding or rigidity. EXTREMITIES: No pedal edema. SKIN: No rashes, no jaundice. NEUROLOGIC: Alert and oriented x3. No focal deficits. Results CBC & Chem 7: 09/06/20 06:49 09/06/20 06:49 Labs: Abnormal Lab Results - Last 24 Hours (Table) 09/05/20 Range/Units 11:34 Magnesium 2.4 H (1.6-2.3) mg/dL CT scan - abdomen: report reviewed (Computed tomography scan of the chest and abdomen with findings of diverticulosis with no acute processes noted.) Assessment and Plan (1) GERD (gastroesophageal reflux disease) Narrative/Plan: 49-year-old male presenting with complaints of chest pain and palpitations. Currently undergoing evaluation with the cardiology service. He does have a history of prior EGD in 06/09 for evaluation of epigastric pain at which time he was found to have a small hiatal hernia, gastritis and duodenitis. He has been restarted on omeprazole twice daily. Unclear etiology, may be related to cardiac process which is being evaluated by the senior solutions architect, uncontrolled GERD, uncontrolled anxiety/panic attack, or other etiology. Current Visit: Yes Status: Acute Code(s): K21.9 - GASTRO-ESOPHAGEAL REFLUX DISEASE WITHOUT ESOPHAGITIS SNOMED Code(s): 424161948 (2) Hiatal hernia Current Visit: Yes Status: Acute Code(s): K44.9 - DIAPHRAGMATIC HERNIA WITHOUT OBSTRUCTION OR GANGRENE SNOMED Code(s): 69567714 (3) Chest pain Current Visit: Yes Status: Acute Code(s): R07.9 - CHEST PAIN, UNSPECIFIED SNOMED Code(s): 53266564 Plan: Supportive care Okay for diet as tolerated Continue twice daily PPI, Protonix 40 mg twice a day and patient can continue omeprazole outpatient setting Continue cardiac evaluation by senior solutions architect No plans for endoscopic evaluation at this time, patient should be continued on twice daily PPI and if symptoms persist and he is cleared by cardiology can consider upper EGD in the outpatient setting Thank you for allowing us to participate in the care of the patient
--- NOTE | 2020-09-07 22:23 | PN ---
PROGRESS NOTE DATE OF SERVICE: 09/07/2020 This 49-year-old gentleman who was admitted with chest pain, possible unstable angina. The patient also had a CT of the chest, abdomen and pelvis did not show any acute abnormality. The stress is being planned by Cardiology tomorrow. Some diverticulosis noted in the CT scan. PHYSICAL EXAMINATION: Alert and oriented x3. Pulse 71. Blood pressure 119/73, respirations 17, temperature 98.4, pulse ox 97% on room air. HEENT: Conjunctivae normal. Neck: No JVD. Cardiovascular: S1, S2 normal. Respirations: Breath sounds diminished in the bases. Abdomen: Soft. Nervous System: No focal deficits. LABORATORY DATA: CBC, BMP noted. ASSESSMENT: 1. Chest pain, possible unstable angina. Rule out coronary artery disease. 2. Possible gastroesophageal reflux disease and hiatal hernia. 3. History of recent Covid and post Covid syndrome. 4. History of recurrent palpitations. 5. History of eczema. 6. History of motion sickness. 7. History of postop nausea, vomiting. 8. FULL CODE. RECOMMENDATIONS AND DISCUSSION: Continue current medications, monitoring and symptomatic treatment. Stress test. Continue the rest of medications. Proton pump inhibitors. Guarded prognosis. Further recommendations to follow. MMODL / IJN: [id number] /
[2020-09-08] MEDS ORDERED: DICYCLOMINE 20 MG TAB PO PRN (07:15)
--- NOTE | 2020-09-08 07:17 | P.PN ---
Subjective Progress Note Date: 09/07/20 Principal diagnosis: Chest pain, hiatal hernia, GERD Patient is seen sitting in bed. No acute complaints. Still having some chest discomfort. Plan is for cardiac stress test tomorrow. Objective - Vital Signs Vital signs: Vital Signs Temp 97.8 F 09/07/20 07:00 Pulse 70 09/07/20 07:00 Resp 18 09/07/20 07:00 BP 118/69 09/07/20 07:00 Pulse Ox 97 09/07/20 07:00 Intake & Output 09/06/20 09/07/20 09/07/20 18:59 06:59 18:59 Intake Total 200 Balance 200 Intake: Oral 200 Other: Voiding Method Toilet Toilet # Voids 2 1 - Exam On physical examination, patient appears comfortable in no apparent distress. HEAD: Normocephalic, atraumatic. EYES: No scleral icterus. No conjunctival injection. MOUTH: No lesions, tongue midline. NECK: Trachea midline, no gross abnormalities. ABDOMEN: Soft, mildly tender to palpation in the epigastric region. Bowel sounds are positive. No organomegaly. No guarding or rigidity. EXTREMITIES: No pedal edema. SKIN: No rashes, no jaundice. NEUROLOGIC: Alert and oriented x3. No focal deficits. - Labs CBC & Chem 7: 09/06/20 06:49 09/06/20 06:49 Assessment and Plan (1) GERD (gastroesophageal reflux disease) Narrative/Plan: 49-year-old male presenting with complaints of chest pain and palpitations. Currently undergoing evaluation with the cardiology service. He does have a h istory of prior EGD in 06/09 for evaluation of epigastric pain at which time he was found to have a small hiatal hernia, gastritis and duodenitis. He has been restarted on omeprazole twice daily. Unclear etiology, may be related to cardiac process which is being evaluated by the public health training assistant, uncontrolled GERD, uncontrolled anxiety/panic attack, or other etiology. Current Visit: Yes Status: Acute Code(s): K21.9 - GASTRO-ESOPHAGEAL REFLUX DISEASE WITHOUT ESOPHAGITIS SNOMED Code(s): 486753339 (2) Hiatal hernia Current Visit: Yes Status: Acute Code(s): K44.9 - DIAPHRAGMATIC HERNIA WITHOUT OBSTRUCTION OR GANGRENE SNOMED Code(s): 53867130 (3) Chest pain Current Visit: Yes Status: Acute Code(s): R07.9 - CHEST PAIN, UNSPECIFIED SNOMED Code(s): 61505748 Plan: Supportive care Okay for diet as tolerated Continue twice daily PPI, Protonix 40 mg twice a day and patient can continue omeprazole outpatient setting Dicyclomine as needed for abdominal pain Continue cardiac evaluation by public health training assistant No plans for endoscopic evaluation at this time, patient should be continued on twice daily PPI and if symptoms persist and he is cleared by cardiology can consider upper EGD in the outpatient setting Thank you for allowing us to participate in the care of the patient, the gastroenterology service will stand by, please call us back with any questions or concerns
[2020-09-08] MEDS: PANTOPRAZOLE 40 MG/10 ML VIAL IVP SCH (07:48)
--- NOTE | 2020-09-08 11:39 | P.PN ---
Subjective This is a pleasant 49-year-old male with no significant past medical history. He continues to have intermittent episodes of chest discomfort, atypical for angina. These symptoms occur at rest with no specific exacerbating factor. Blood pressure 131/74 heart rate 70 afebrile maintaining oxygen saturation on room air. GI is planning for possible outpatient endoscopy. GENERAL: Well-appearing, well-nourished and in no acute distress. NECK: Supple without JVD or thyromegaly. LUNGS: Breath sounds clear to auscultation bilaterally. Respiration equal and unlabored. No wheezes, rales or rhonchi. HEART: Regular rate and rhythm without murmurs, rubs or gallops. S1 and S2 heard. EXTREMITIES: Normal range of motion, no edema. No clubbing or cyanosis. Peripheral pulses intact. ASSESSMENT Chest pain, atypical PLAN Proceed with stress test as previously ordered. If stress test is normal he may be discharged from a cardiac perspective. Nurse Practitioner note has been reviewed, I agree with a documented findings and plan of care. Patient was seen and examined. Objective - Vital Signs Vital signs: Vital Signs Temp 98.2 F 09/08/20 07:00 Pulse 70 09/08/20 07:00 Resp 14 09/08/20 07:00 BP 131/74 09/08/20 07:00 Pulse Ox 97 09/08/20 07:00 Intake & Output 09/07/20 09/08/20 09/08/20 18:59 06:59 18:59 Intake Total 180 Balance 180 Intake: Oral 180 Other: Voiding Method Toilet Toilet # Voids 2 1 - Labs CBC & Chem 7: 09/06/20 06:49 09/06/20 06:49
[2020-09-08 14:19] VITALS: RESP 16
[2020-09-08] MEDS: ACETAMINOPHEN TAB 325 MG TAB PO PRN (16:55)
--- NOTE | 2020-09-08 18:13 | EST ---
EXERCISE STRESS INDICATION: Chest pain. AGE: 49 SEX: M HT: 5'9" WT: 175 lbs PROTOCOL: Nitin STAGE: 4 DURATION OF EXERCISE: 9:50 HEART RATE REST: 67 BLOOD PRESSURE REST: 112/80 MAXIMUM HEART RATE ACHIEVED: 154 MAXIMUM BLOOD PRESSURE: 166/69 85% MPHR: 145 100% MPHR: 175 METS: 11.5 RESULTS: Baseline EKG shows sinus rhythm, normal axis, normal intervals. Patient exercised on Nitin protocol for a total of 9 minutes and 50 seconds achieving 11 METS, 90% of predicted maximal heart rate without ST-segment depression. The patient complained of chest pain throughout the study. CONCLUSIONS: 1. Excellent exercise tolerance. 2. Negative stress test by EKG criteria. 3. Patient had chest discomfort on treadmill. MMODL / IJN: [id number] /
[2020-09-08] MEDS: PANTOPRAZOLE 40 MG TABLET PO SCH (21:19)
--- NOTE | 2020-09-08 22:38 | PN ---
PROGRESS NOTE DATE OF SERVICE: 09/08/2020 This 49-year-old gentleman who was admitted with chest pain had a stress echo today. No chest pain. No palpitations. No fever. PHYSICAL EXAMINATION: Alert and oriented x3. Pulse 74, blood pressure 101/60, respirations 16, temperature 97.2, pulse ox 98% on room air. HEENT: Conjunctivae normal. Neck: No JVD. Cardiovascular: S1, S2 muffled. Respiratory: Breath sounds diminished at the bases. No rhonchi. No crackles. Abdomen: Soft, nontender. Nervous system: No focal deficits. LABORATORY DATA: CBC, BMP normal. ASSESSMENT: 1. Chest pain possible unstable angina. Rule out coronary artery disease. 2. Possible gastroesophageal reflux disease and hiatal hernia. 3. History of recent Covid 19 and post Covid syndrome. 4. History of recurrent palpitations. 5. History of eczema. 6. History of motion sickness. 7. History of postop nausea, vomiting. 8. FULL CODE. RECOMMENDATIONS AND DISCUSSION: Continue current medications, and symptomatic treatment. Await stress echo reports. Otherwise, closely follow with Cardiology. Guarded prognosis because of multiple complex medical issues and further recommendations to follow. MMODL / IJN: [id number] /
[2020-09-09 07:24] VITALS: BP 134/71; PULSE 60; TEMP 97.9
[2020-09-09] MEDS: PANTOPRAZOLE 40 MG TABLET PO SCH (09:02)
--- NOTE | 2020-09-09 11:26 | P.PN ---
Subjective This is a pleasant 49-year-old male with no significant past medical history. He continues to have intermittent episodes of chest discomfort, atypical for angina. These symptoms occur at rest with no specific exacerbating factor. Blood pressure 131/74 heart rate 70 afebrile maintaining oxygen saturation on room air. GI is planning for possible outpatient endoscopy. 09/09/2020 Patient seen and examined sitting up in no acute distress. He underwent a stress test yesterday where he had excellent exercise tolerance with no evidence of stress-induced ischemia however he had ongoing chest discomfort throughout his stress test. He was observed overnight. He states his chest pain has subsided. He is currently resting comfortably and chest pain-free. Blood pressure 134/71 heart rate 60 afebrile maintaining oxygen saturation on room air. GENERAL: Well-appearing, well-nourished and in no acute distress. NECK: Supple without JVD or thyromegaly. LUNGS: Breath sounds clear to auscultation bilaterally. Respiration equal and unlabored. No wheezes, rales or rhonchi. HEART: Regular rate and rhythm without murmurs, rubs or gallops. S1 and S2 heard. EXTREMITIES: Normal range of motion, no edema. No clubbing or cyanosis. Periph eral pulses intact. ASSESSMENT Chest pain, atypical PLAN Stable for discharge from a cardiac perspective. His pain is atypical with no evidence of stress induced ischemia with excellent exercise tolerance. Pain is likely from non-cardiac etiology. Outpatient endoscopy recommended per GI team. Follow up in the office with Dr. Woo in 2 weeks. Nurse Practitioner note has been reviewed, I agree with a documented findings and plan of care. Patient was seen and examined. Objective - Vital Signs Vital signs: Vital Signs Temp 97.9 F 09/09/20 07:10 Pulse 60 09/09/20 07:10 Resp 16 09/09/20 07:10 BP 134/71 09/09/20 07:10 Pulse Ox 99 09/09/20 07:10 Intake & Output 09/08/20 09/09/20 09/09/20 18:59 06:59 18:59 Intake Total 720 Balance 720 Weight 79.38 kg Intake: Oral 720 Other: Voiding Method Toilet # Voids 2 - Labs CBC & Chem 7: 09/06/20 06:49 09/06/20 06:49
--- NOTE | 2020-09-10 16:41 | P.DS ---
Providers Date of admission: 09/05/20 13:23 Expected date of discharge: 09/09/20 Attending physician: Sanjiv Rothman Consults: 09/05/20 13:22 Consult Physician Routine Consulting Provider: Monty Smith Consult Reason/Comments: CP Do you want consulting provider notified?: Yes Primary care physician: Rupinder Valverde [facility] Hospital Course: Final diagnosis Chest pain possible unstable angina, ruled out coronary artery disease Possible GERD and hiatal hernia History of recent COVID-19 and post Covid syndrome history of recurrent palpitations history of eczema history of motion sickness history of postop nausea with vomiting Full code Discharge disposition Patient is being discharged in a stable condition with guarded prognosis to home. Patient will follow-up with Dr. Valverde in the outpatient setting upon discharge. Patient to also the follow-up with cardiology Dr. Woo and GI Dr. Lemus outpatient. Patient will continue on Protonix 40 mg twice daily along with Bentyl and will be following up with GI in the outpatient setting. Total time taken is greater than 35 minutes. Hospital course This is a 49-year-old male who was recently admitted with chest pain and was being closely monitored. Patient underwent stress test which was negative and will follow-up with cardiology outpatient. Patient will also follow-up with GI and continue on Protonix 40 mg twice daily along with Bentyl as needed until follow-up. Currently no reports of chest pain, shortness of breath, or palpitations. Patient is afebrile. No reports of nausea or vomiting and patient is tolerating diet. Patient will be discharged home today. Patient instructed to follow-up with primary care provider upon discharge.. On exam vital signs are stable. Cardio S1, S2 are muffled. Respiratory system shows diminished breath sounds at the bases with no wheezing or rhonchi noted. Abdomen is soft and nontender. Nervous system shows no focal deficits. Please refer to medication reconciliation sheet for a list of medications. Patient Condition at Discharge: Stable Plan - Discharge Summary Discharge Rx Participant: No New Discharge Prescriptions: New Pantoprazole Sodium [Protonix] 40 mg PO BID #60 tablet. Acetaminophen Tab [Tylenol] 650 mg PO Q6HR PRN tab PRN Reason: Mild Pain Or Fever > 100.5 Dicyclomine [Bentyl] 20 mg PO QID PRN #40 tab PRN Reason: Dyspepsia Discontinued Omeprazole 20 mg PO BID Discharge Medication List Acetaminophen Tab [Tylenol] 650 mg PO Q6HR PRN tab 09/08/20 [Rx] Dicyclomine [Bentyl] 20 mg PO QID PRN #40 tab 09/08/20 [Rx] Pantoprazole Sodium [Protonix] 40 mg PO BID #60 tablet. 09/08/20 [Rx] Follow up Appointment(s)/Referral(s): Rupinder Valverde III, MD [Primary Care Provider] - 1-2 days Omar Woo MD [STAFF PHYSICIAN] - 09/15/20 3:15 pm Andrea Lemus MD [STAFF PHYSICIAN] - 09/19/20 12:45 pm Patient Instructions/Handouts: Chest Pain (DC), Hiatal Hernia (DC), Gastroesophageal Reflux Disease (DC) Activity/Diet/Wound Care/Special Instructions: continue heart healthy diet Activity Limited follow-up Follow-up with the president & founder recommended Follow-up with the gastroenterology is recommended follow Up with primary care provider upon discharge Discharge Disposition: HOME SELF-CARE
== END 2020-09-09 12:57 | disposition home or self-care (01) ==
LOC: EC 10:55 → 6NMEDSUR 13:23
PROVIDERS: ADMIT Hospitalist; ATTEND Hospitalist
DX: R07.89 Other chest pain (principal); K21.9 Gastro-esophageal reflux disease without esophagitis; K44.9 Diaphragmatic hernia without obstruction or gangrene; R00.2 Palpitations; R06.02 Shortness of breath; K57.90 Diverticulosis of intestine, part unspecified, without perforation or abscess without bleeding; L30.9 Dermatitis, unspecified; J30.81 Allergic rhinitis due to animal (cat) (dog) hair and dander; J30.89 Other allergic rhinitis; Z86.16 Personal history of COVID-19; Z88.5 Allergy status to narcotic agent
CPT/HCPCS: 96361; 96374; 99285; 36415; 94760; 93005; 93017; 85379; 80053; 80048; 85652; 84443; 83690; 83735; 84484; 85025 ×2; 85610; 85730; 86140; 81003; 80306; 71046; 71250; 74176; G0378 ×5; C9113 ×4

== ENCOUNTER 2020-10-03 11:04 | Day surgery (SDC) | payer BC ==
[2020-10-01 16:08] VITALS: BMI 26.1
[~2020-10-03 11:04] MED LIST changes: +LIDOCAINE 1% (10MG/ML) FOR IV START INTRADERMA PRN; -LIDOCAINE 1% 20 ML VIAL (10MG/ML) FOR IV START INTRADERMA PRN
[2020-10-03 11:47] VITALS: TEMP 98.3
[2020-10-03] MEDS ORDERED: LACTATED RINGERS 1,000 ML IV ONE (11:47)
[2020-10-03] MEDS ORDERED: PROPOFOL 10 MG/ML 20 ML VIAL IV ONE (12:59)
[2020-10-03] MEDS ORDERED: LIDOCAINE 1% INJ 10MG/ML (20 ML MDV) ONE (12:59)
--- NOTE | 2020-10-03 13:09 | P.PCN ---
Date of Procedure: 10/03/20 Procedure(s) Performed: BRIEF HISTORY: Patient is a 50-year-old, pleasant, male scheduled for an upper endoscopy as a part of evaluation of epigastric pain, epigastric pressure and heartburn for the last 2 months duration. He had similar symptoms approximately 4 years ago and was treated with PPIs and underwent an upper endoscopy that revealed small hiatal hernia and GERD. Presently he is been taking Pepcid as needed for the symptoms.. PROCEDURE PERFORMED: Esophagogastroduodenoscopy with biopsy. PREOPERATIVE DIAGNOSIS: Epigastric pain and pressure for the last 2 months duration. IV sedation per anesthesia. PROCEDURE: After informed consent was obtained, the patient was brought into the endoscopy unit. IV sedation was administered by Anesthesia under continuous monitoring. Initially the Olympus GIF-140 video endoscope was inserted into the mouth. Esophagus intubated without any difficulty. It was gradually advanced into the stomach and duodenum and carefully examined. The bulb and the second part of the duodenum appeared normal. The scope at this time was withdrawn to the stomach, adequately insufflated with air, and upon careful examination, mucosa of the antrum, had minimal gastritis. Biopsies were done from this area. There were multiple small gastric polyps noted in the body the stomach which were biopsied. Rest of the body, cardia and the fundus appeared normal. The scope was then withdrawn into the esophagus. The GE junction was located at 41 cm from the incisors. Small sliding type hiatal hernia noted. The esophagus appeared normal. There were no erosions or ulcerations seen and the patient tolerated the procedure well. IMPRESSION: 1. Small sliding hiatal hernia. 2. Multiple Gastric polyps status pos biopsy. 3. No evidence of peptic ulcer disease or esophagitis RECOMMENDATIONS: The findings of this examination were discussed with the patient as well as his family. He was advised to follow with the biopsy result. He will continue with Pepcid 20 mg as needed and follow antireflux measures.
[2020-10-03 13:12] VITALS: RESP 16
[2020-10-03 13:29] VITALS: BP 120/82; PULSE 59
== END 2020-10-03 14:00 | disposition home or self-care (01) ==
LOC: ORWHC2ENDO 11:04
PROVIDERS: ATTEND Internal Medicine Gastroenterology
DX: K44.9 Diaphragmatic hernia without obstruction or gangrene (principal); K21.9 Gastro-esophageal reflux disease without esophagitis; K29.50 Unspecified chronic gastritis without bleeding; K31.7 Polyp of stomach and duodenum
CPT/HCPCS: 43239; 88305; J2001; J2704

== ENCOUNTER → 2020-11-04 | Outpatient (CLI) | payer BC ==
--- NOTE | 2020-11-04 17:59 | US ---
EXAMINATION TYPE: US abdomen complete DATE OF EXAM: 11/04/2020 COMPARISON: CT 09/05/2020 CLINICAL HISTORY: 50-year-old male R10.13 epigastric pain. Pt states ABD discomfort EXAM MEASUREMENTS: Liver Length: 14.6 cm Gallbladder Wall: 0.2 cm CBD: 0.3 cm Spleen: 10.7 cm Right Kidney: 9.8 x 4.7 x 4.1 cm Left Kidney: 10.2 x 5.4 x 4.8 cm Pancreas: Obscured by bowel gas Liver: wnl Gallbladder: wnl, phrygian cap Evidence for sonographic Bill's sign: No CBD: wnl Spleen: wnl Right Kidney: wnl Left Kidney: wnl Upper IVC: wnl Abd Aorta: Proximal portions gassed out/ mid and distal portions appeared wnl [employer] notes:No abnormality visualized to account for pt's symptoms IMPRESSION: Suboptimal visualization of the pancreas. Otherwise, unremarkable sonographic examination of the abdo men.
== END | disposition home or self-care (01) ==
LOC: RADUSWWP 10:03
PROVIDERS: ATTEND Internal Medicine Gastroenterology
DX: R10.13 Epigastric pain (principal)
CPT/HCPCS: 76700

== ENCOUNTER → 2020-12-23 | Outpatient (CLI) | payer BC ==
--- NOTE | 2020-12-23 14:56 | CT ---
EXAMINATION TYPE: CT pancreas biphase DATE OF EXAM: 12/23/2020 COMPARISON: CT September 05, 2020 HISTORY: Left upper quadrant pain with shortness of breath. CT DLP: 475.5 mGycm, Automated Exposure Control for Dose Reduction was Utilized. CONTRAST: CT scan of the abdomen and pelvis is performed with oral water and with IV Contrast, patient injected with 125 mL of Isovue 370. Pancreas protocol. FINDINGS: LUNG BASES: No significant abnormality is appreciated. LIVER/GB: No significant abnormality is appreciated. PANCREAS: Pancreas overall normal in size without concerning solid or cystic mass or ductal dilatatio n. SPLEEN: No significant abnormality is seen. ADRENALS: No significant abnormality is seen. KIDNEYS: Accessory right renal artery. BOWEL: No significant abnormality is seen. LYMPH NODES: No greater than 1cm abdominal lymph nodes are appreciated. OSSEOUS STRUCTURES: Mild multilevel spurring in the lower thoracic spine. OTHER: No significant additional abnormality is seen. IMPRESSION: No CT evidence of complication related to acute pancreatitis. Unremarkable study.
== END | disposition home or self-care (01) ==
LOC: RADCTMAIN 13:45
PROVIDERS: ATTEND Surgery
DX: R10.12 Left upper quadrant pain (principal)
CPT/HCPCS: 74160; Q9967

== ENCOUNTER 2020-12-31 08:22 | Day surgery (SDC) | payer BC ==
[2020-12-26 14:45] VITALS: BMI 25.1
[2020-12-31 09:34] VITALS: RESP 16; TEMP 96.9
[2020-12-31] MEDS ORDERED: LIDOCAINE 1% INJ 10MG/ML (20 ML MDV) ONE (10:13)
[2020-12-31] MEDS ORDERED: PROPOFOL 10 MG/ML 20 ML VIAL IV ONE (10:13)
--- NOTE | 2020-12-31 10:25 | P.PCN ---
Date of Procedure: 12/31/20 Procedure(s) Performed: BRIEF HISTORY: Patient is a 50-year-old pleasant white male scheduled for an elective colonoscopy as a part of screening for colorectal neoplasia. PROCEDURE PERFORMED: Colonoscopy. PREOPERATIVE DIAGNOSIS: Screening for colon cancer. IV sedation per Anesthesia. PROCEDURE: After informed consent was obtained, the patient, was brought into the endoscopy unit. IV sedation was administered by Anesthesia under continuous monitoring. Digital rectal examination was normal. Initially the Olympus CF-160 flexible video colonoscope was then inserted in the rectum, gradually advanced into the cecum without any difficulty. Careful examination was performed as the scope was gradually being withdrawn. Ileocecal valve and the appendiceal orifice were visualized and appeared normal. Prep was excellent. Mucosa of the cecum, ascending colon, transverse colon, descending colon, sigmoid colon, and rectum appeared normal. Retroflexion was performed in the rectum and no lesions were seen. The patient tolerated the procedure well. IMPRESSION: Normal-appearing colon from rectum to cecum with no colorectal neoplasia. RECOMMENDATIONS: Findings of this examination were discussed with the patient as well as his family. He was advised to have a repeat screening colonoscopy in 10 years.
[2020-12-31 10:49] VITALS: BP 127/79; PULSE 54
== END 2020-12-31 11:14 | disposition home or self-care (01) ==
LOC: ORWHC2ENDO 08:22
PROVIDERS: ATTEND Internal Medicine Gastroenterology
DX: Z12.11 Encounter for screening for malignant neoplasm of colon (principal)
CPT/HCPCS: 45378; J2001; J2704